=== PATIENT | female | born 1985 | race Caucasian/White ===

== ENCOUNTER 2016-04-15 10:46 | Emergency (ER) | payer OTHER ==
[2016-04-15 10:57] VITALS: BP 152/45
[2016-04-15] MEDS ORDERED: EPINEPHrine AMP 1 MG/ML SUBCUT ONE (11:18)
[2016-04-15] MEDS ORDERED: methylPREDNISolone 125 MG* 2 ML VIAL IM ONE (11:19)
[2016-04-15] MEDS ORDERED: diPHENhydraMINE IV* 50 MG/ML 1 ml VIAL (BENADRYL) IM ONE (11:19)
--- NOTE | 2016-04-15 12:54 | UC ---
Yahir King Matthew, scribed for Erickson Hollingsworth MD on 04/15/16 at 1119 . Allergic Reaction HPI - HPI Summary HPI Summary: Nurses Note; States has bleach allergy; exposed to bleach fumes at work. states throat/tongue feeling swollen, also getting itchy rash. A 30 y/o female presents to the ED with symptoms of an allergic reaction since 30 minutes ago. The patient states that she is allergic to bleach and walked by a taxi cab that had just been cleaned with bleach. She states that she only inhaled the bleach. Associated symptoms include rash on the abdomen, SOB upon arrival, swelling of the eyes and throat as well as diffuse itchiness. She also states that she feeling "weird". Hx of asthma. The patient has not been given epinephrine in the past. - History of Current Complaint Chief Complaint: UCAllergicReaction Stated Complaint: ALLERGIC REACTION Time Seen by Provider: 04/15/16 10:55 Hx Obtained From: Patient Hx Last Menstrual Period: 1 week ?: No Onset/Duration: Sudden Onset, Lasting Minutes, Still Present Severity Initially: Moderate Severity Currently: Moderate Location: Diffuse Character: Swelling, Pruritus Aggrevating Factor(s): Other - Bleach Alleviating Factor(s): Antihistamines, Epinephrine Associated Signs And Symptoms: Positive: Difficulty Breathing, Rash - lower abdomen, Throat Tightening. Negative: Abdominal Pain - Allergies/Home Medications Allergies/Adverse Reactions: Allergies Allergy/AdvReac Type Severity Reaction Status Date / Time Clindamycin Allergy Hives/Diff. Verified 03/06/16 10:26 Breathing/I tching Tramadol Allergy Hives Verified 03/06/16 10:26 arugula Allergy Unknown Uncoded 03/06/16 10:26 Reaction Details bleach Allergy Hives/Diff. Uncoded 04/15/16 11:00 Breathing/I tching PMH/Surg Hx/FS Hx/Imm Hx Endocrine History Of: Denies: Diabetes, Thyroid Disease Cardiovascular History Of: Denies: Cardiac Disorders, Hypertension, Pacemaker/ICD Respiratory History Of: Reports: Asthma Denies: COPD GI/ History Of: Reports: Gastroesophageal Reflux Denies: Renal Disease Neurological History Of: Denies: CVA, Dementia, Seizures Other History Of: Negative For: Anticoagulant Therapy - Surgical History Surgical History: Yes Surgery Procedure, Year, and Place: fracture mandible. broken left arm (CLOSED REDUCTION) - Family History Known Family History: Positive: Cardiac Disease, Diabetes Family History: FHx of asthma - Social History Occupation: Employed Full-time - [employer] Alcohol Use: Occasionally Substance Use Type: None Substance Use Comment - Amount & Last Used: one year Smoking Status (MU): Never Smoked Tobacco Have You Smoked in the Last Year: No Household Exposure Type: Cigarettes, Pipe - Immunization History Most Recent Influenza Vaccination: doesn't get Review of Systems Constitutional: Negative Skin: Rash - lower abdomen, Other - Diffuse itchiness Eyes: Other - Eye swelling ENT: Other - Throat Swelling Respiratory: Shortness Of Breath Cardiovascular: Negative Gastrointestinal: Negative Genitourinary: Negative Motor: Negative Neurovascular: Negative Musculoskeletal: Negative Neurological: Negative Psychological: Negative All Other Systems Reviewed And Are Negative: Yes Physical Exam Triage Information Reviewed: Yes Appearance: Well-Appearing, No Pain Distress, Well-Nourished Vital Signs: Initial Vital Signs Pulse 73 04/15/16 10:51 Resp 20 04/15/16 10:51 BP 152/45 04/15/16 10:51 Pulse Ox 100 04/15/16 10:51 Vital Signs Reviewed: Yes Eyes: Positive: Conjunctiva Clear ENT: Positive: Hearing grossly normal, Pharynx normal, TMs normal, Other: - Throat is open and clear. Tongue is normal size Neck: Positive: Supple, No Lymphadenopathy Respiratory: Positive: Chest non-tender, Lungs clear, Normal breath sounds, No respiratory distress Cardiovascular: Positive: RRR, No Murmur Abdomen Description: Positive: Nontender, Soft Bowel Sounds: Positive: Present Musculoskeletal: Positive: Strength Intact, Other: - FISCHER Neurological: Positive: Alert Psychological: Positive: Age Appropriate Behavior - Additional Comments Additional Physical Examination at 12:00 PE No facial swelling No burning of mucosal membranes Throat open and clear Lungs CTA No rash noted on the arms bilaterally No itchiness It appears as though the allergic component has resolved. Re-Evaluation - Re-Evaluation First Eval Re-Evaluation Time: 11:11 Change: Improved Comment: The patient's lungs are CTA. Second Eval Re-Evaluation Time: 12:00 Comment: The patient states that her throat feels relaxed as well as her face. Her eyes feel normal as well. Posterior of the forearms are no longer red bilaterally. She states that she has burning sensation under the skin of the hands and in the crevices of her elbows. She states that she feels ready to go home. Third Eval Re-Evaluation Time: 12:51 Change: Improved Comment: Came into the room and the patient was ambulating, breathing normally with no itchiness or SOB. Voice clear, throat open and clear. Lungs CTA, Heart RRR, and no abdominal pain, bowel sounds present, and no rashes noted. The patient states that she feels much better. Allergic Reaction Course/Dx - Course Course Of Treatment: A 30 y/o female exposed to bleach with a previous Hx of an allergic reaction including a visit on 07/10/15. 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 She initially complained of SOB, rash in the lower abdomen anteriorly and it itchiness. Althought she has asthma she had no wheezing. She responded to epinephrine and Benadryl and was given solumedrol as prophylaxis against a delayed allergic reaction. Poisson control noted this maybe a direct mucosal response to inhaling bleach. - Differential Dx/Diagnosis Differential Diagnosis/HQI/PQRI: Other - Inhalation injury; hypersensitive skin reaction; anaphylaxis; allergic reaction. Provider Diagnoses: Allergic reaction; Discharge - Discharge Plan Condition: Stable Disposition: HOME Patient Education Materials: Anaphylaxis (ED) Forms: *Gen. Provider Communication Referrals: Trevin Mock MD [Primary Care Provider] - Additional Instructions: WE DISCUSSED: 1. Take 25mg of Benadryl this afternoon, later, and this evening before bed. 2. GO TO ED FOR ANY SHORTNESS OF BREATH, DIFFICULTY SWALLOWING OR NEW RASH OR ITCHING. 3. CONSIDER carrying an Epi-Pen. The documentation as recorded by the Yahir leonardo Matthew accurately reflects the service I personally performed and the decisions made by me, Erickson Hollingsworth MD.
== END 2016-04-15 13:00 | disposition home or self-care (01) ==
LOC: UCEAST 10:46
DX: T78.40XA Allergy, unspecified, initial encounter (principal); X58.XXXA Exposure to other specified factors, initial encounter; R21 Rash and other nonspecific skin eruption; R06.00 Dyspnea, unspecified; Z88.1 Allergy status to other antibiotic agents; Z77.22 Contact with and (suspected) exposure to environmental tobacco smoke (acute) (chronic)
CPT/HCPCS: 96372; 99212; G0463; J0171; J1200; J2930

== ENCOUNTER 2016-08-07 00:29 | Emergency (ER) | payer OTHER ==
--- NOTE | 2016-08-07 01:06 | ED ---
Throat Pain/Nasal Congestion - HPI Summary HPI Summary: 30 female presents with complaints of dental pain and nodule that began 2 weeks ago but has worsened over the past day and especially today. Patient states the pain has began to radiate into her right cheek and ear. She denies any fever/ chills or discharge. No difficulty swallowing or breathing. She states the pain is about a 6/10. She has had several procedures and dental work done from breaking her jaw and dental caries. Patient denies taking any medication for the pain. She is concerned for cancer, as it runs in her family. Denies tobacco use. - History of Current Complaint Chief Complaint: EDDentalPain Time Seen by Provider: 08/07/16 01:06 Hx Obtained From: Patient Onset/Duration: Sudden Onset, Lasting Weeks, Worse Since - yesterday Severity: Moderate Cough: None - Allergies/Home Medications Allergies/Adverse Reactions: Allergies Allergy/AdvReac Type Severity Reaction Status Date / Time Clindamycin Allergy Hives/Diff. Verified 08/07/16 01:07 Breathing/I tching Tramadol Allergy Hives Verified 08/07/16 01:07 arugula Allergy Unknown Uncoded 08/07/16 01:07 Reaction Details bleach Allergy Hives/Diff. Uncoded 08/07/16 01:07 Breathing/I tching PMH/Surg Hx/FS Hx/Imm Hx Endocrine/Hematology History: Denies: Hx Anticoagulant Therapy, Hx Diabetes, Hx Thyroid Disease Cardiovascular History: Denies: Hx Hypertension, Hx Pacemaker/ICD Respiratory History: Reports: Hx Asthma Denies: Hx Chronic Obstructive Pulmonary Disease (COPD) GI History: Reports: Hx Gastroesophageal Reflux Disease History: Denies: Hx Renal Disease Neurological History: Denies: Hx Dementia, Hx Seizures Psychiatric History: Denies: Hx Substance Abuse - Surgical History Surgery Procedure, Year, and Place: fracture mandible. broken left arm (CLOSED REDUCTION) - Immunization History Date of Tetanus Vaccine: unknown Immunizations Up to Date: Yes Infectious Disease History: Denies: Hx Clostridium Difficile, Hx Hepatitis, Hx Human Immunodeficiency Virus (HIV), Hx of Known/Suspected MRSA, Hx Shingles, Hx Tuberculosis, Hx Known/ Suspected VRE, Hx Known/Suspected VRSA, History Other Infectious Disease, Traveled Outside the [place] in Last 30 Days - Family History Known Family History: Positive: None, Unknown, Cardiac Disease, Diabetes Family History: FHx of asthma - Social History Alcohol Use: Occasionally Substance Use Type: Reports: None Substance Use Comment - Amount & Last Used: one year Smoking Status (MU): Never Smoked Tobacco Have You Smoked in the Last Year: No Review of Systems Constitutional: Negative Eyes: Negative Positive: Dental Pain Cardiovascular: Negative Gastrointestinal: Negative Musculoskeletal: Negative Skin: Negative Neurological: Negative Positive: Anxious All Other Systems Reviewed And Are Negative: Yes Physical Exam Triage Information Reviewed: Yes Vital Signs On Initial Exam: Initial Vitals Temp Pulse Resp BP Pulse Ox 97.5 F 79 18 138/45 100 08/07/16 00:43 08/07/16 00:43 08/07/16 00:43 08/07/16 00:43 08/07/16 00:43 afebrile Vital Signs Reviewed: Yes Appearance: Positive: Well-Appearing, No Pain Distress, Well-Nourished Skin: Positive: Warm, Skin Color Reflects Adequate Perfusion, Dry. Negative: Cold Injury Head/Face: Positive: Normal Head/Face Inspection Eyes: Positive: Normal, EOMI, MITCHELL, Conjunctiva Clear ENT: Positive: Normal ENT inspection, Hearing grossly normal, Pharynx normal, TMs normal, Dental tenderness - right over tooth #6. Negative: Pharyngeal erythema, Nasal congestion, Nasal drainage, TM bulging, TM dull, TM red, Tonsillar swelling, Tonsillar exudate, Trismus, Muffled/hoarse voice Dental: Positive: Percussion Tenderness @ - right maxillary sinus, Gross Decay/ Caries @, Dental Fracture @, Abscess @ - palpated over tooth number 6 over top lip, no protrusion or external visualization. tender on palpation, no discharge , warmth, cellulitis. visualized small edematous area of right 6th tooth. poor dentita. nonfluctuant and not drainable.. Negative: Cellulitis @, Cervical Lymphadenopathy, Bleeding, Oropharynx Neck: Positive: Supple, Nontender, No Lymphadenopathy Respiratory/Lung Sounds: Positive: Clear to Auscultation, Breath Sounds Present. Negative: Rales, Rhonchi, Wheezes Cardiovascular: Positive: Normal, RRR, Pulses are Symmetrical in both Upper and Lower Extremities Musculoskeletal: Positive: Normal, Strength/ROM Intact Neurological: Positive: Normal, Sensory/Motor Intact, Alert, Oriented to Person Place, Time Diagnostics - Vital Signs Vital Signs Temp Pulse Resp BP Pulse Ox 08/07/16 00:43 97.5 F 79 18 138/45 100 - Laboratory Lab Statement: Any lab studies that have been ordered have been reviewed, and results considered in the medical decision making process. EENT Course/Dx - Course Course Of Treatment: given naproxen for pain and inflammation. first dose of amoxicillin given in ED. continue both at home. follow up with dentist. patient had appointment in 1.5 weeks with dentist. Aware of worsening signs and symptoms to watch out for. Return if worsen. Also recommend to swish with salt water and oralgel. - Differential Diagnoses Differential Diagnoses: Dental Abscess, Dental Caries, Fractured Tooth, Periodontic Abscess, Other - apthous ulcer - Diagnoses Provider Diagnoses: Pain, dental, Dental abscess Discharge - Discharge Plan Condition: Stable Disposition: HOME Prescriptions: Amoxicillin CAP* [Amoxicillin 500 MG CAP*] 500 mg PO Q12H #13 cap Patient Education Materials: Dental Abscess (ED) Referrals: Trevin Mock MD [Primary Care Provider] - Additional Instructions: Take prescribed antibiotic as directed. Recommend taking probiotics inbetween doses to help replenish normal ana. Also recommend doubling up on control until next cycle due to antibiotics decreasing effectiveness of control, or refrain from sexual activity. Take Advil or Aleve to help with pain and inflammation. Apply warm compresses to area of abscess/pain. Swish/gargle with salt water multiple times daily. If symptoms worsen or do not improve please return. Follow up with dentist, at your appointment in the next couple of weeks.
[2016-08-07 01:09] VITALS: BP 111/73
[2016-08-07] MEDS ORDERED: Amoxicillin CAP* 500 MG PO ONE (01:21)
[2016-08-07] MEDS ORDERED: Naproxen TAB* 250 MG PO ONE (01:22)
== END 2016-08-07 02:03 | disposition home or self-care (01) ==
LOC: ED 00:29
DX: K04.7 Periapical abscess without sinus (principal); K08.89 Other specified disorders of teeth and supporting structures; K21.9 Gastro-esophageal reflux disease without esophagitis
CPT/HCPCS: 99282; A9270-GY

== ENCOUNTER 2017-01-08 02:18 | Emergency (ER) | payer SELFPAY ==
[2017-01-08] MEDS ORDERED: Ibuprofen TAB* 600 MG PO ONE (04:01)
[2017-01-08 07:14] VITALS: BP 92/61
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
== END 2017-01-08 03:09 | disposition home or self-care (01) ==
LOC: ED 03:09
DX: S13.9XXA Sprain of joints and ligaments of unspecified parts of neck, initial encounter (principal); R51 Headache; M54.9 Dorsalgia, unspecified; V43.52XA Car driver injured in collision with other type car in traffic accident, initial encounter; Y93.9 Activity, unspecified; Y92.9 Unspecified place or not applicable
CPT/HCPCS: 70450; 72125; 99282; A9270-GY

== ENCOUNTER 2017-01-12 17:37 | Emergency (ER) | payer SELFPAY ==
[2017-01-12 17:52] VITALS: BP 113/55
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
[2017-01-12] MEDS ORDERED: Ketorolac INJ* 60 MG/2 ML VIAL IM ONE (19:07)
== END 2017-01-12 19:30 | disposition home or self-care (01) ==
LOC: UCEAST 17:37
DX: M54.12 Radiculopathy, cervical region (principal); G56.00 Carpal tunnel syndrome, unspecified upper limb; M25.511 Pain in right shoulder; M62.838 Other muscle spasm
CPT/HCPCS: 99213; G0463; J1885

== ENCOUNTER 2017-01-25 13:34 | Emergency (ER) | payer OTHER ==
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
[2017-01-25 19:46] VITALS: BP 145/89
== END 2017-01-25 19:44 | disposition home or self-care (01) ==
LOC: ED 13:34
DX: M95.8 Other specified acquired deformities of musculoskeletal system (principal); M79.601 Pain in right arm
CPT/HCPCS: 99282

== ENCOUNTER 2017-02-21 09:32 | Emergency (ER) | payer OTHER ==
[2017-02-21 09:47] VITALS: BP 139/54
--- NOTE | 2017-02-21 11:16 | UC ---
Throat Pain/Nasal Gucci HPI - HPI Summary HPI Summary: Cough sore throat green and ugal[place] productive cough, chest burning with cough - History of Current Complaint Chief Complaint: UCGeneralIllness Stated Complaint: SORE THROAT Time Seen by Provider: 02/21/17 11:08 Hx Obtained From: Patient Hx Last Menstrual Period: 02/15/17 ?: No Onset/Duration: Sudden Onset, Lasting Days, Still Present Severity: Moderate Pain Intensity: 5 Pain Scale Used: 0-10 Numeric Cough: Productive Associated Signs & Symptoms: Positive: Nasal Discharge - Allergies/Home Medications Allergies/Adverse Reactions: Allergies Allergy/AdvReac Type Severity Reaction Status Date / Time Clindamycin Allergy Hives/Diff. Verified 02/21/17 09:47 Breathing/I tching Tramadol Allergy Hives Verified 02/21/17 09:47 arugula Allergy Unknown Uncoded 02/21/17 09:47 Reaction Details bleach Allergy Hives/Diff. Uncoded 02/21/17 09:47 Breathing/I tching Home Medications: Home Medications Phenol 1.4% Benton* [Chloroseptic Throat Benton*] 1 spray TOPICAL Q3HR PRN [History Confirmed 02/21/17] PMH/Surg Hx/FS Hx/Imm Hx Previously Healthy: No GI/ History: Gastroesophageal Reflux Other History Of: Negative For: Anticoagulant Therapy - Surgical History Surgical History: Yes Surgery Procedure, Year, and Place: fracture mandible. broken left arm (CLOSED REDUCTION) - Family History Known Family History: Positive: None, Unknown, Cardiac Disease, Diabetes Family History: FHx of asthma - Social History Occupation: Employed Full-time Lives: With Family Alcohol Use: Rare Substance Use Type: None Substance Use Comment - Amount & Last Used: one year Smoking Status (MU): Never Smoked Tobacco Have You Smoked in the Last Year: No Household Exposure Type: Cigarettes, Pipe - Immunization History Most Recent Influenza Vaccination: NOT UTD Review of Systems Constitutional: Negative Skin: Negative Eyes: Negative ENT: Negative, Sore Throat, Nasal Discharge Respiratory: Cough Cardiovascular: Negative Gastrointestinal: Negative Genitourinary: Negative Motor: Negative Neurovascular: Negative Musculoskeletal: Negative Neurological: Negative Psychological: Negative Is Patient Immunocompromised?: No All Other Systems Reviewed And Are Negative: Yes Physical Exam Triage Information Reviewed: Yes Appearance: Well-Appearing, No Pain Distress, Well-Nourished Vital Signs: Initial Vital Signs Temp 97.8 F 02/21/17 09:42 Pulse 77 02/21/17 09:42 Resp 18 02/21/17 09:42 BP 139/54 02/21/17 09:42 Pulse Ox 100 02/21/17 09:42 Vital Signs Reviewed: Yes Eye Exam: Normal Eyes: Positive: Conjunctiva Clear ENT Exam: Normal ENT: Positive: Normal ENT inspection, Hearing grossly normal, Pharynx normal, Nasal congestion, TMs normal, Uvula midline. Negative: Tonsillar swelling, Tonsillar exudate, Hoarse voice, Dental tenderness, Sinus tenderness Dental Exam: Normal Neck exam: Normal Neck: Positive: Supple, Nontender, No Lymphadenopathy Respiratory Exam: Normal Respiratory: Positive: Chest non-tender, Lungs clear, Normal breath sounds, No respiratory distress, No accessory muscle use Cardiovascular Exam: Normal Cardiovascular: Positive: RRR, No Murmur, Pulses Normal, Brisk Capillary Refill Musculoskeletal Exam: Normal Musculoskeletal: Positive: Strength Intact, ROM Intact, No Edema Neurological Exam: Normal Neurological: Positive: Alert, Muscle Tone Normal Psychological Exam: Normal Skin Exam: Normal Diagnostics - Laboratory Diagnostic Studies Completed/Ordered: rst (-) Throat Pain/Nasal Course/Dx - Course Assessment/Plan: Zithroamx, albuterol, rest increase fluids follow with pcp prn - Differential Dx/Diagnosis Provider Diagnoses: Acute Bronchitis Discharge - Discharge Plan Condition: Stable Disposition: HOME Prescriptions: Albuterol HFA INHALER* [Ventolin HFA Inhaler*] 1 - 2 puff INH Q4H PRN #1 mdi PRN Reason: cough/chest congestion Azithromycin TAB* [Zithromax TAB (Z-ROMAN) 250 mg #6 tabs] 2 tab PO .TODAY, THEN 1 DAILY #1 roman Patient Education Materials: Acute Bronchitis (ED) Referrals: Jeanine LEVINE,Maria M Peguero [Primary Care Provider] - If Needed
== END 2017-02-21 11:34 | disposition home or self-care (01) ==
LOC: UCEAST 09:32
DX: J20.9 Acute bronchitis, unspecified (principal); Z88.1 Allergy status to other antibiotic agents; Z88.5 Allergy status to narcotic agent
CPT/HCPCS: 87651; 99212; G0463

== ENCOUNTER 2017-04-02 10:44 | Emergency (ER) | payer SELFPAY ==
[2017-04-02] MEDS ORDERED: Ibuprofen TAB* 800 MG PO ONE (12:13)
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
[2017-04-02 15:21] VITALS: BP 104/50
== END 2017-04-02 15:20 | disposition home or self-care (01) ==
LOC: ED 10:44
DX: S16.1XXA Strain of muscle, fascia and tendon at neck level, initial encounter (principal); S56.912A Strain of unspecified muscles, fascia and tendons at forearm level, left arm, initial encounter; S46.911A Strain of unspecified muscle, fascia and tendon at shoulder and upper arm level, right arm, initial encounter; V43.52XA Car driver injured in collision with other type car in traffic accident, initial encounter; Y92.410 Unspecified street and highway as the place of occurrence of the external cause; Z88.3 Allergy status to other anti-infective agents; Z88.5 Allergy status to narcotic agent
CPT/HCPCS: 72020; 72040; 99283; A9270-GY

== ENCOUNTER 2017-04-04 17:58 | Emergency (ER) | payer SELFPAY ==
[2017-04-04 18:52] VITALS: BP 130/53
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
--- NOTE | 2017-04-04 20:29 | RAD ---
Indication: Cough. 2 views of the chest including dual energy PA views demonstrates no mediastinal shift. Heart is of normal size and configuration. Lung nur are clear. When compared to previous exam of March 04, 2009 no significant change is noted. IMPRESSION: No active cardiopulmonary disease is noted.
== END 2017-04-04 20:08 | disposition home or self-care (01) ==
LOC: UCEAST 17:58
DX: J45.909 Unspecified asthma, uncomplicated (principal); M54.9 Dorsalgia, unspecified; M79.1 Myalgia; V89.2XXA Person injured in unspecified motor-vehicle accident, traffic, initial encounter; W22.11XA Striking against or struck by driver side automobile airbag, initial encounter; Y93.89 Activity, other specified; Y92.9 Unspecified place or not applicable
CPT/HCPCS: 71046; 99212; G0463

== ENCOUNTER 2017-04-17 18:09 | Emergency (ER) | payer MEDICAID ==
[2017-04-17 18:21] VITALS: BP 113/58
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
== END 2017-04-17 18:56 | disposition home or self-care (01) ==
LOC: UCEAST 18:09
DX: R10.31 Right lower quadrant pain (principal); G50.1 Atypical facial pain; R22.0 Localized swelling, mass and lump, head; H92.01 Otalgia, right ear; J45.909 Unspecified asthma, uncomplicated; K21.9 Gastro-esophageal reflux disease without esophagitis; Z88.1 Allergy status to other antibiotic agents; Z88.5 Allergy status to narcotic agent; Z77.22 Contact with and (suspected) exposure to environmental tobacco smoke (acute) (chronic)
CPT/HCPCS: 99201; G0463

== ENCOUNTER 2017-04-17 20:42 | Emergency (ER) | payer SELFPAY ==
[2017-04-17] MEDS ORDERED: Ketorolac INJ* 30 MG/ML 1 ML VIAL IV ONE (23:23)
[2017-04-17] MEDS ORDERED: Pantoprazole IV* 40 MG IV ONE (23:23)
[2017-04-17] MEDS ORDERED: Metoclopramide IV* 5 MG/ML 2 ML VIAL IV ONE (23:23)
[2017-04-17] MEDS ORDERED: NS 0.9% 1000 ML* 1,000 ML IV ONE (23:23)
[2017-04-17 23:47] LABS: ABS Basophils 0 10^3/ul (0-0.2); ABS Eosinophils 0.1 10^3/ul (0-0.6); ABS Lymphocytes 2.6 10^3/ul (1.0-4.8); ABS Monocytes 0.4 10^3/ul (0-0.8); ABS Nucleated RBC 0 10^3/ul; Hematocrit 41 % (35-47); Hemoglobin 13.6 g/dl (12.0-16.0); Lymphocyte % 36.5 % (25-47); Mean Corpuscular HGB Conc 34 g/dl (31-36); Mean Corpuscular Hemoglobin 29 pg (27-31); Mean Corpuscular Volume 87 fL (80-97); Mean Platelet Volume 9 um3 (7.4-10.4); Nucleated Red Blood Cells % 0.1; Platelet Count 196 10^3/ul (150-450); Red Blood Count 4.67 10^6/ul (4.0-5.4); Red Cell Distribution Width 13 % (10.5-15); White Blood Count 7.2 10^3/ul (3.5-10.8)
[2017-04-18 00:01] LABS: EGFR Non-African American 82.4 (>60)
[2017-04-18] MEDS ORDERED: Iohexol 300* (CONTRAST) 10 ML SDV IV ONE (00:04)
[2017-04-18 01:07] LABS: Urine Appearance Cloudy; Urine Blood 2+ (Negative); Urine Color Yellow; Urine Ketones 1+ (Negative); Urine Protein Negative (Negative); Urine Specific Gravity 1.029 (1.010-1.030); Urine Urobilinogen Negative (Negative)
[2017-04-18] MEDS ORDERED: Sulfamethox/Trimethoprim DS 800/160* TAB PO ONE (01:10)
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
[2017-04-18 01:46] VITALS: BP 108/31
--- NOTE | 2017-04-18 08:01 | RAD ---
INDICATION: Abdominal pain COMPARISON: None TECHNIQUE: Axial source images were obtained from the hemidiaphragms to the symphysis pubis following administration of IV contrast only. 100 mL Omnipaque 300 was utilized. Coronal and sagittal reconstructed images were acquired. Lung bases: The lung bases are clear. Liver: The liver is normal in size. There are no masses. There is no ductal dilatation. Gallbladder: There are no calcified gallstones. There is no evidence of wall thickening or pericholecystic fluid. Spleen: The spleen is normal in size. There are no masses. Pancreas: There is no focal pancreatic mass or ductal dilatation. Adrenal glands: There is no evidence of adrenal mass. Kidneys: The kidneys are normal in size and position. There are prompt nephrograms and there is prompt excretion bilaterally. There are no renal parenchymal masses. There is no evidence of nephrolithiasis. Adenopathy: There is no evidence of adenopathy by size criteria. Fluid collections: There are no free or localized fluid collections. Vessels:There are no significant atherosclerotic changes involving the aorta. There is no focal aneurysm. The iliac vessels are normal in caliber. The IVC appears normal. GI tract: Limited evaluation due to lack of oral contrast. Appendix not well visualized. No perienteric inflammatory changes are identified. Pelvic organs: Uterus and adnexa are normal. There is small in bleeding right ovarian cyst. Bladder: There are no bladder masses. Abdominal and pelvic soft tissues: The extraperitoneal abdominal and pelvic soft tissues appear normal.. Osseous structures: There are no acute osseous findings. Other: None IMPRESSION: SUSPECT SMALL INCLUDING RIGHT OVARIAN CYST, OTHERWISE NEGATIVE.
== END 2017-04-18 01:49 | disposition home or self-care (01) ==
LOC: ED 20:42
DX: N39.0 Urinary tract infection, site not specified (principal); N83.201 Unspecified ovarian cyst, right side; R10.9 Unspecified abdominal pain; Z87.09 Personal history of other diseases of the respiratory system
CPT/HCPCS: 36415; 74177; 80053; 81003; 81015; 82150; 83690; 83735; 84702; 85025; 86140; 87086; 96374; 96375; 99285; J1885; J2765; Q9967

== ENCOUNTER 2018-01-12 19:55 | Emergency (ER) | payer MEDICAID, OTHER ==
[2018-01-12 20:11] VITALS: BP 146/50
[2018-01-12] MEDS ORDERED: Ketorolac INJ* 30 MG/ML 1 ML VIAL IM ONE (20:51)
[2018-01-12] MEDS ORDERED: Mupirocin 2% OINT* TUBE TOPICAL ONE (20:52)
--- NOTE | 2018-01-12 20:56 | UC ---
Skin Complaint HPI - HPI Summary HPI Summary: The patient is a 32-year-old female that presents here for evaluation of chemical gaitan to her face and chest. She states that she tried to remove intact tattoos from her face and chest. She had the tattoos for her Halloween costume. She initially attempted to remove the ankle with scrubbing with hot water and soap. This did not do the trick. She then attempted scrubbing with rubbing alcohol. Shortly remove the tattoos but then just cause some smearing. She then attempted to remove the ink tattoos with Mr. pedrito jha. She scrubbed the tattoo on her chest and dad at the tattoos on her face. She immediately started experiencing burning pain. She is use cool compresses since then with some help. She has had some wheezing but has not been able to use her inhaler because she was at work. - History of Current Complaint Chief Complaint: UCSkin Time Seen by Provider: 01/12/18 20:39 Stated Complaint: CHEMICAL BURN Hx Obtained From: Patient Hx Last Menstrual Period: 01/10/18 Onset/Duration: Sudden Onset, Lasting Hours Timing: Constant Onset Severity: Mild Current Severity: Moderate Pain Intensity: 6 Pain Scale Used: 0-10 Numeric Location: Face, Other - ant chest Aggravating Factor(s): Touch Alleviating Factor(s): Nothing Associated Signs & Symptoms: Positive: Cough, Wheezing, Tenderness. Negative: Nausea, Vomiting, Numbness, Thirst, Diaphoresis, Weakness, Pallor, Shivering, Fever, Chills, Chest Pain, Hoarseness, Throat Tightening, Syncope, Drainage, Bruising, Red Streaks, Joint Swelling - Allergy/Home Medications Allergies/Adverse Reactions: Allergies Allergy/AdvReac Type Severity Reaction Status Date / Time clindamycin Allergy Hives/Diff. Verified 01/12/18 20:12 Breathing/I tching tramadol Allergy Hives/Diff. Verified 01/12/18 20:12 Breathing/I tching arugula Allergy Unknown Uncoded 01/12/18 20:12 Reaction Details bleach Allergy Hives/Diff. Uncoded 01/12/18 20:12 Breathing/I tching Review of Systems Constitutional: Negative Skin: Negative Eyes: Negative ENT: Negative Respiratory: Shortness Of Breath, Cough Cardiovascular: Negative Gastrointestinal: Negative Genitourinary: Negative Motor: Negative Neurovascular: Negative Musculoskeletal: Negative Neurological: Negative Psychological: Negative All Other Systems Reviewed And Are Negative: Yes PMH/Surg Hx/FS Hx/Imm Hx Previously Healthy: Yes Respiratory History: Asthma Other History Of: Negative For: Anticoagulant Therapy - Surgical History Surgical History: Yes Surgery Procedure, Year, and Place: fracture mandible. broken left arm (CLOSED REDUCTION) - Family History Known Family History: Positive: Cardiac Disease, Diabetes, Other - cancer Family History: FHx of asthma - Social History Alcohol Use: Rare Substance Use Type: None Substance Use Comment - Amount & Last Used: one year Smoking Status (MU): Never Smoked Tobacco Have You Smoked in the Last Year: No Household Exposure Type: Cigarettes, Pipe - Immunization History Most Recent Influenza Vaccination: NOT UTD Physical Exam Triage Information Reviewed: Yes Appearance: Well-Appearing, No Pain Distress, Well-Nourished Vital Signs: Initial Vital Signs Temp 98.7 F 01/12/18 20:07 Pulse 88 01/12/18 20:07 Resp 18 01/12/18 20:07 BP 146/50 01/12/18 20:07 Pulse Ox 100 01/12/18 20:07 Vital Signs Reviewed: Yes Eyes: Positive: Conjunctiva Clear ENT: Positive: Hearing grossly normal, Uvula midline. Negative: Pharyngeal erythema, Nasal drainage, Tonsillar swelling, Tonsillar exudate, Trismus, Muffled voice, Hoarse voice, Dental tenderness, Sinus tenderness Neck: Positive: Supple, Nontender, No Lymphadenopathy Respiratory: Positive: Wheezing - mild Cardiovascular: Positive: RRR, No Murmur Abdominal Exam: Normal Musculoskeletal: Positive: ROM Intact, No Edema Neurological: Positive: Alert Psychological Exam: Normal Skin Exam: Other - see image Course/Dx - Diagnoses Provider Diagnoses: chemical gaitan Discharge - Sign-Out/Discharge Documenting (check all that apply): Patient Departure All imaging exams completed and their final reports reviewed: No Studies - Discharge Plan Condition: Stable Disposition: HOME Patient Education Materials: Chemical Skin Burn (ED) Referrals: Maria M Torres [Primary Care Provider] - 5 Days Additional Instructions: I suggest you get some AQUAPHOR HEALING OIMTMENT to use on your face Use bactroban on your chest as directed - Billing Disposition and Condition Condition: STABLE Disposition: Home Images Head: 1 - erthymena/slightly raised/no blisters Front/Back of Body, Lg ([place]): 1 - erthyema and raw appearance
== END 2018-01-12 21:27 | disposition home or self-care (01) ==
LOC: UCEAST 19:55
DX: T65.891A Toxic effect of other specified substances, accidental (unintentional), initial encounter (principal); T20.50XA Corrosion of first degree of head, face, and neck, unspecified site, initial encounter; T21.41XA Corrosion of unspecified degree of chest wall, initial encounter; Y93.E8 Activity, other personal hygiene; Y92.9 Unspecified place or not applicable; Z88.1 Allergy status to other antibiotic agents; Z88.5 Allergy status to narcotic agent
CPT/HCPCS: 96372; 99212; G0463; J1885

== ENCOUNTER 2018-01-21 20:37 | Emergency (ER) | payer OTHER ==
[2018-01-21 20:58] VITALS: BP 118/53
--- NOTE | 2018-01-21 21:06 | UC ---
Neck Pain HPI - HPI Summary HPI Summary: 32-year-old woman comes in with a chief complaint of right-sided neck pain. Started about a week ago. It's been getting worse. It hurts to move her neck or palpates the area. She feels it up into her jaw and into her right ear. Does have poor dentition but she does not feel is due to a dental infection. It does hurt to swallow she does not feel short of breath. No fevers. - History of Current Complaint Chief Complaint: UCGeneralIllness Stated Complaint: SORE THROAT Time Seen by Provider: 01/21/18 20:45 Hx Last Menstrual Period: 01/10/2018 Pain Intensity: 9 - Allergies/Home Medications Allergies/Adverse Reactions: Allergies Allergy/AdvReac Type Severity Reaction Status Date / Time clindamycin Allergy Hives/Diff. Verified 01/21/18 20:59 Breathing/I tching tramadol Allergy Hives/Diff. Verified 01/21/18 20:59 Breathing/I tching arugula Allergy Unknown Uncoded 01/21/18 20:59 Reaction Details bleach Allergy Hives/Diff. Uncoded 01/21/18 20:59 Breathing/I tching PMH/Surg Hx/FS Hx/Imm Hx Respiratory History: Asthma Other History Of: Negative For: Anticoagulant Therapy - Surgical History Surgical History: Yes Surgery Procedure, Year, and Place: fracture mandible. broken left arm (CLOSED REDUCTION) - Family History Known Family History: Positive: None, Unknown, Cardiac Disease, Diabetes, Other - cancer Family History: FHx of asthma - Social History Alcohol Use: Rare Substance Use Type: None Substance Use Comment - Amount & Last Used: one year Smoking Status (MU): Never Smoked Tobacco Have You Smoked in the Last Year: No Household Exposure Type: Cigarettes, Pipe - Immunization History Most Recent Influenza Vaccination: NOT UTD Review Of Systems Constitutional: Positive: Negative Skin: Positive: Negative Eyes: Positive: Negative ENT: Positive: Sore Throat, Ear Ache. Negative: Nasal Discharge, Sinus Congestion Respiratory: Positive: Negative Cardiovascular: Positive: Negative Gastrointestinal: Positive: Negative Genitourinary: Positive: Negative Musculoskeletal: Positive: Negative Neurological: Positive: Negative Psychological: Positive: Negative All Other Systems Reviewed And Are Negative: No Physical Exam Triage Information Reviewed: Yes Appearance: Well-Appearing, Well-Nourished, Pain Distress - MILD Vital Signs: Initial Vital Signs Temp 98.2 F 01/21/18 20:52 Pulse 62 01/21/18 20:52 Resp 16 01/21/18 20:52 BP 118/53 01/21/18 20:52 Pulse Ox 97 01/21/18 20:52 Vital Signs Reviewed: Yes Eye Exam: Normal Eyes: Positive: Conjunctiva Clear ENT: Positive: Pharynx normal, Other - Patient is tender to palpation right anterior neck. I can feel the pulse of the carotid artery.. Negative: Muffled voice, Hoarse voice Dental: Positive: Other: - POSITIVE CARIES Neck: Positive: Tenderness @ - Right anterior, Other: - Decreased range of motion secondary to pain in the neck Respiratory: Positive: Lungs clear, Normal breath sounds, No respiratory distress Cardiovascular: Positive: RRR Musculoskeletal Exam: Normal Musculoskeletal: Positive: Strength Intact, ROM Intact Neurological Exam: Normal Neurological: Positive: Alert, Muscle Tone Normal Psychological Exam: Normal Psychological: Positive: Age Appropriate Behavior Skin Exam: Normal Neck Pain Course/Dx - Course Course Of Treatment: I recommended the patient to go the emergency department for further evaluation of her neck pain and swelling. - Differential Dx/Diagnosis Provider Diagnoses: NECK PAIN Discharge - Sign-Out/Discharge Documenting (check all that apply): Patient Departure All imaging exams completed and their final reports reviewed: No Studies - Discharge Plan Condition: Stable Disposition: HOME-RECOMMEND TO ED Patient Education Materials: Neck Pain (ED) Referrals: Maria M Torres [Primary Care Provider] - Additional Instructions: GO DIRECTLY TO THE EMERGENCY DEPARTMENT FOR FURTHER EVALUATION. - Billing Disposition and Condition Condition: STABLE Disposition: Home-Recommend to ED
== END 2018-01-21 21:17 | disposition home health service (06) ==
LOC: UCEAST 20:37
DX: M54.2 Cervicalgia (principal); J02.9 Acute pharyngitis, unspecified; J45.909 Unspecified asthma, uncomplicated; Z88.1 Allergy status to other antibiotic agents; Z88.6 Allergy status to analgesic agent; Z91.018 Allergy to other foods; Z91.048 Other nonmedicinal substance allergy status
CPT/HCPCS: 99212; G0463

== ENCOUNTER 2018-01-21 22:19 | Emergency (ER) | payer OTHER ==
[2018-01-21] MEDS ORDERED: Ibuprofen TAB* 800 MG PO ONE (23:12)
[2018-01-21 23:42] LABS: ABS Basophils 0.1 10^3/ul (0-0.2); ABS Eosinophils 0.1 10^3/ul (0-0.6); ABS Lymphocytes 2.4 10^3/ul (1.0-4.8); ABS Monocytes 0.5 10^3/ul (0-0.8); ABS Nucleated RBC 0 10^3/ul; Eosinophil % 1.2 % (0-6); Hematocrit 39 % (35-47); Hemoglobin 13.4 g/dl (12.0-16.0); Lymphocyte % 26.7 % (25-47); Mean Corpuscular HGB Conc 34 g/dl (31-36); Mean Corpuscular Hemoglobin 30 pg (27-31); Mean Corpuscular Volume 87 fL (80-97); Mean Platelet Volume 9.1 fL (7.4-10.4); Nucleated Red Blood Cells % 0; Platelet Count 206 10^3/ul (150-450); Red Blood Count 4.51 10^6/ul (4.00-5.40); Red Cell Distribution Width 13 % (10.5-15); White Blood Count 9.2 10^3/ul (3.5-10.8)
[2018-01-22 00:01] LABS: EGFR Non-African American 80.7 (>60)
[2018-01-22] MEDS ORDERED: Iohexol 300* (CONTRAST) 10 ML SDV IV ONE (00:35)
--- NOTE | 2018-01-22 02:41 | ED ---
Throat Pain/Nasal Congestion - HPI Summary HPI Summary: Patient sent by [facility] to ED for further evaluation of right submandibular pain and swelling involving right ear right side throat. Patient denies history of the toe abscess, fever, cough, sore throat, CP, SOB, N/V/D, abdominal pain, change in urine, change in BM. Medical history is none. Patient took naproxen yesterday. - History of Current Complaint Chief Complaint: EDGeneral Time Seen by Provider: 01/21/18 23:02 Hx Obtained From: Patient Onset/Duration: Gradual Onset Severity: Severe Associated Signs And Symptoms: Positive: Dysphagia. Negative: Drooling, Wheezing, Hoarseness Cough: None - Allergies/Home Medications Allergies/Adverse Reactions: Allergies Allergy/AdvReac Type Severity Reaction Status Date / Time clindamycin Allergy Hives/Diff. Verified 01/21/18 22:27 Breathing/I tching tramadol Allergy Hives/Diff. Verified 01/21/18 22:27 Breathing/I tching arugula Allergy Unknown Uncoded 01/21/18 22:27 Reaction Details bleach Allergy Hives/Diff. Uncoded 01/21/18 22:27 Breathing/I tching PMH/Surg Hx/FS Hx/Imm Hx Endocrine/Hematology History: Denies: Hx Anticoagulant Therapy, Hx Diabetes, Hx Thyroid Disease Cardiovascular History: Denies: Hx Hypertension, Hx Pacemaker/ICD Respiratory History: Reports: Hx Asthma Denies: Hx Chronic Obstructive Pulmonary Disease (COPD) GI History: Reports: Hx Gastroesophageal Reflux Disease Denies: Hx Ulcer History: Denies: Hx Renal Disease Musculoskeletal History: Denies: Hx Arthritis Sensory History: Denies: Hx Hearing Aid Neurological History: Denies: Hx Dementia, Hx Seizures Psychiatric History: Denies: Hx Panic Disorder, Hx Substance Abuse - Surgical History Surgery Procedure, Year, and Place: fracture mandible. broken left arm (CLOSED REDUCTION) - Immunization History Date of Tetanus Vaccine: utd Date of Influenza Vaccine: none Infectious Disease History: No Infectious Disease History: Denies: Hx Clostridium Difficile, Hx Hepatitis, Hx Human Immunodeficiency Virus (HIV), Hx of Known/Suspected MRSA, Hx Shingles, Hx Tuberculosis, Hx Known/ Suspected VRE, Hx Known/Suspected VRSA, History Other Infectious Disease, Traveled Outside the [place] in Last 30 Days - Family History Known Family History: Positive: None, Unknown, Cardiac Disease, Diabetes, Other - cancer Family History: FHx of asthma - Social History Alcohol Use: Rare Hx Substance Use: No Substance Use Type: Reports: None Substance Use Comment - Amount & Last Used: one year Hx Tobacco Use: No Smoking Status (MU): Never Smoked Tobacco Have You Smoked in the Last Year: No Review of Systems Constitutional: Negative Eyes: Negative Positive: Sore Throat, Ear Ache Cardiovascular: Negative Respiratory: Negative Gastrointestinal: Negative Genitourinary: Negative Musculoskeletal: Negative Skin: Negative Neurological: Negative Psychological: Normal All Other Systems Reviewed And Are Negative: Yes Physical Exam - Summary Physical Exam Summary: Mild swelling of the submandibular area on right side. No erythema to the mastoid. Normal TMs. Full range of motion of jaw. Oropharyngeal exam normal. Triage Information Reviewed: Yes Vital Signs On Initial Exam: Initial Vitals Temp Pulse Resp BP Pulse Ox 98.0 F 60 16 119/62 97 01/21/18 22:20 01/21/18 22:20 01/21/18 22:20 01/21/18 22:20 01/21/18 22:20 Vital Signs Reviewed: Yes Appearance: Positive: Well-Appearing Skin: Positive: Warm Head/Face: Positive: Normal Head/Face Inspection Eyes: Positive: Normal ENT: Positive: Pharynx normal, TMs normal, Uvula midline. Negative: Tonsillar swelling, Tonsillar exudate, Trismus, Muffled voice, Hoarse voice Neck: Positive: Supple Respiratory/Lung Sounds: Positive: Clear to Auscultation Cardiovascular: Positive: Normal Abdomen Description: Positive: Nontender Musculoskeletal: Positive: Normal Neurological: Positive: Normal Psychiatric: Positive: Normal AVPU Assessment: Alert - Denise Coma Scale Best Eye Response: 4 - Spontaneous Best Motor Response: 6 - Obeys Commands Best Verbal Response: 5 - Oriented Coma Scale Total: 15 Diagnostics - Vital Signs Vital Signs Temp Pulse Resp BP Pulse Ox 01/21/18 22:20 98.0 F 60 16 119/62 97 - Laboratory Lab Results: Lab Results 01/21/18 01/21/18 Range/Units 23:32 23:32 WBC 9.2 (3.5-10.8) 10^3/ul RBC 4.51 (4.00-5.40) 10^6/ul Hgb 13.4 (12.0-16.0) g/dl Hct 39 (35-47) % MCV 87 (80-97) fL MCH 30 (27-31) pg MCHC 34 (31-36) g/dl RDW 13 (10.5-15) % Plt Count 206 (150-450) 10^3/ul MPV 9.1 (7.4-10.4) fL Neut % (Auto) 65.8 (38-83) % Lymph % (Auto) 26.7 (25-47) % [place] % (Auto) 5.7 (0-7) % Eos % (Auto) 1.2 (0-6) % Baso % (Auto) 0.6 (0-2) % Absolute Neuts (auto) 6.0 (1.5-7.7) 10^3/ul Absolute Lymphs (auto) 2.4 (1.0-4.8) 10^3/ul Absolute Monos (auto) 0.5 (0-0.8) 10^3/ul Absolute Eos (auto) 0.1 (0-0.6) 10^3/ul Absolute Basos (auto) 0.1 (0-0.2) 10^3/ul Absolute Nucleated RBC 0 10^3/ul Nucleated RBC % 0 Sodium 139 (135-145) mmol/L Potassium 3.6 (3.5-5.0) mmol/L Chloride 105 (101-111) mmol/L Carbon Dioxide 27 (22-32) mmol/L Anion Gap 7 (2-11) mmol/L BUN 13 (6-24) mg/dL Creatinine 0.83 (0.51-0.95) mg/dL Est GFR ( Amer) 97.7 (>60) Est GFR (Non-Af Amer) 80.7 (>60) BUN/Creatinine Ratio 15.7 (8-20) Glucose 90 (70-100) mg/dL Calcium 8.8 (8.6-10.3) mg/dL Total Bilirubin 0.30 (0.2-1.0) mg/dL AST 11 L (13-39) U/L ALT 6 L (7-52) U/L Alkaline Phosphatase 59 (34-104) U/L C-Reactive Protein 12.48 H (<8.01) mg/L Total Protein 6.8 (6.4-8.9) g/dL Albumin 4.1 (3.2-5.2) g/dL Globulin 2.7 (2-4) g/dL Albumin/Globulin Ratio 1.5 (1-3) Result Diagrams: 01/21/18 23:32 01/21/18 23:32 Lab Statement: Any lab studies that have been ordered have been reviewed, and results considered in the medical decision making process. EENT Course/Dx - Course Course Of Treatment: Patient sent by [facility] to ED for further evaluation of right submandibular pain and swelling involving right ear right side throat. Patient denies history of the toe abscess, fever, cough, sore throat, CP, SOB, N/V/D, abdominal pain, change in urine, change in BM. Medical history is none. Patient took naproxen yesterday. physical exam:Mild swelling of the submandibular area on right side. No erythema to the mastoid. Normal TMs. Full range of motion of jaw. Oropharyngeal exam normal. Vital signs within normal limits. Labs unremarkable. CT soft tissue neck positive only for lymph adenopathy - Differential Diagnoses Differential Diagnoses: Dental Abscess, Mastoiditis, Otitis Media, Periodontic Abscess, Pharyngitis, Tonsilitis - Diagnoses Provider Diagnoses: Anterior cervical lymphadenopathy Discharge - Sign-Out/Discharge Documenting (check all that apply): Patient Departure - Discharge Plan Condition: Stable Disposition: HOME Prescriptions: HYDROcodone/ACETAMIN 5-325 MG* [Qulin 5-325 TAB*] 1 tab PO TID 2 Days #6 tab MDD 3 tabs Patient Education Materials: Lymphadenopathy (ED) Referrals: Jeanine LEVINE,Maria M Peguero [Primary Care Provider] - Additional Instructions: Follow-up with primary care. Return to the ED for any new or worsening symptoms - Billing Disposition and Condition Condition: STABLE Disposition: Home
[2018-01-22 03:19] VITALS: BP 126/72
== END 2018-01-22 03:00 | disposition home or self-care (01) ==
LOC: ED 22:19
DX: R59.1 Generalized enlarged lymph nodes (principal); K02.9 Dental caries, unspecified; Z88.1 Allergy status to other antibiotic agents; Z88.5 Allergy status to narcotic agent
CPT/HCPCS: 36415; 70491; 80053; 85025; 86140; 99282; A9270-GY; Q9967

== ENCOUNTER 2018-02-11 15:15 | Emergency (ER) | payer OTHER ==
[2018-02-11 15:49] VITALS: BP 117/42
[2018-02-11] MEDS ORDERED: Dexamethasone IV* 4 MG/ML 1 ML (4 MG) IM ONE ×2 (17:06→17:07)
[2018-02-11] MEDS ORDERED: Ibuprofen TAB* 400 MG PO ONE (17:06)
--- NOTE | 2018-02-11 17:10 | UC ---
Respiratory Complaint HPI - HPI Summary HPI Summary: 32 year old female with history of asthma (no prior intubation) here with complaint of sore throat, hoarseness and cough. Reports symptoms started about 3 days ago. She reports she was running around in the storm outside. Subjective fever. Productive cough. Reports chest discomfort when coughing. No sob. - History of Current Complaint Chief Complaint: UCGeneralIllness Stated Complaint: CONGESTED,SORE THROAT Time Seen by Provider: 02/11/18 16:59 Hx Last Menstrual Period: 01/31/18 Onset/Duration: Sudden Onset Pain Intensity: 8 Character: Cough: Productive Associated Signs And Symptoms: Positive: Chills, URI, Nasal Congestion, Hoarseness. Negative: Hemoptysis, Calf Pain, Calf Swelling - Allergies/Home Medications Allergies/Adverse Reactions: Allergies Allergy/AdvReac Type Severity Reaction Status Date / Time clindamycin Allergy Hives/Diff. Verified 02/11/18 15:37 Breathing/I tching tramadol Allergy Hives/Diff. Verified 02/11/18 15:37 Breathing/I tching arugula Allergy Unknown Uncoded 02/11/18 15:37 Reaction Details bleach Allergy Hives/Diff. Uncoded 02/11/18 15:37 Breathing/I tching PMH/Surg Hx/FS Hx/Imm Hx Other History Of: Negative For: Anticoagulant Therapy - Surgical History Surgical History: Yes Surgery Procedure, Year, and Place: fracture mandible. broken left arm (CLOSED REDUCTION) - Family History Known Family History: Positive: None, Unknown, Cardiac Disease, Diabetes, Other - cancer Family History: FHx of asthma - Social History Alcohol Use: None Substance Use Type: None Substance Use Comment - Amount & Last Used: one year Smoking Status (MU): Never Smoked Tobacco Have You Smoked in the Last Year: No Household Exposure Type: Cigarettes, Pipe - Immunization History Most Recent Influenza Vaccination: NOT UTD Review of Systems All Other Systems Reviewed And Are Negative: Yes Constitutional: Positive: Negative ENT: Positive: Sore Throat Respiratory: Positive: Cough Is Patient Immunocompromised?: No Physical Exam Appearance: Well-Appearing, No Pain Distress Vital Signs: Initial Vital Signs Temp 36.6 C 02/11/18 15:39 Pulse 65 02/11/18 15:39 Resp 20 02/11/18 15:39 BP 117/42 02/11/18 15:39 Pulse Ox 98 12/01/18 15:39 Eye Exam: Normal ENT: Positive: Pharyngeal erythema, Nasal congestion. Negative: Tonsillar swelling, Tonsillar exudate, Muffled voice, Sinus tenderness Respiratory Exam: Normal Cardiovascular Exam: Normal Abdominal Exam: Normal Musculoskeletal Exam: Normal Neurological Exam: Normal Psychological Exam: Normal Diagnostic Evaluation - Laboratory O2 Sat by Pulse Oximetry: 98 Respiratory Course/Dx - Differential Dx/Diagnosis Differential Diagnosis/HQI/PQRI: Bronchitis, Laryngitis, Sinusitis Provider Diagnosis: Laryngitis Discharge - Sign-Out/Discharge Documenting (check all that apply): Patient Departure All imaging exams completed and their final reports reviewed: Yes - Discharge Plan Condition: Good Disposition: HOME Patient Education Materials: Laryngitis (ED), Cold Symptoms (ED) Referrals: Maria M Torres [Primary Care Provider] - - Billing Disposition and Condition Condition: GOOD Disposition: Home
== END 2018-02-11 17:34 | disposition home or self-care (01) ==
LOC: UCEAST 15:15
DX: J04.0 Acute laryngitis (principal); Z88.1 Allergy status to other antibiotic agents; Z88.5 Allergy status to narcotic agent
CPT/HCPCS: 96372; 99212; A9270-GY; G0463; J1100

== ENCOUNTER 2018-05-02 21:33 | Emergency (ER) | payer OTHER ==
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
[2018-05-02 21:49] VITALS: BP 123/58
--- NOTE | 2018-05-02 21:57 | ED ---
Throat Pain/Nasal Congestion - HPI Summary HPI Summary: hx. of dental pain right lower jaw. told she needed root canal , was denied by her insurance, since that time has had increasing pain - History of Current Complaint Chief Complaint: UCDentalProblem Time Seen by Provider: 05/02/18 21:37 Hx Obtained From: Patient Onset/Duration: Sudden Onset Severity: Moderate - Epiglottits Risk Factors Epiglottis Risk Factors: Negative - Allergies/Home Medications Allergies/Adverse Reactions: Allergies Allergy/AdvReac Type Severity Reaction Status Date / Time clindamycin Allergy Hives/Diff. Verified 05/02/18 21:49 Breathing/I tching tramadol Allergy Hives/Diff. Verified 05/02/18 21:49 Breathing/I tching arugula Allergy Unknown Uncoded 02/11/18 15:37 Reaction Details bleach Allergy Hives/Diff. Uncoded 02/11/18 15:37 Breathing/I tching PMH/Surg Hx/FS Hx/Imm Hx Previously Healthy: Yes Endocrine/Hematology History: Denies: Hx Anticoagulant Therapy, Hx Diabetes, Hx Thyroid Disease Cardiovascular History: Denies: Hx Hypertension, Hx Pacemaker/ICD Respiratory History: Reports: Hx Asthma Denies: Hx Chronic Obstructive Pulmonary Disease (COPD) GI History: Reports: Hx Gastroesophageal Reflux Disease Denies: Hx Ulcer History: Denies: Hx Renal Disease Musculoskeletal History: Denies: Hx Arthritis Sensory History: Denies: Hx Hearing Aid Neurological History: Denies: Hx Dementia, Hx Seizures Psychiatric History: Denies: Hx Panic Disorder, Hx Substance Abuse - Surgical History Surgery Procedure, Year, and Place: fracture mandible. broken left arm (CLOSED REDUCTION) - Immunization History Date of Tetanus Vaccine: utd Date of Influenza Vaccine: none Infectious Disease History: No Infectious Disease History: Reports: Traveled Outside the [place] in Last 30 Days - oumar Denies: Hx Clostridium Difficile, Hx Hepatitis, Hx Human Immunodeficiency Virus (HIV), Hx of Known/Suspected MRSA, Hx Shingles, Hx Tuberculosis, Hx Known/ Suspected VRE, Hx Known/Suspected VRSA, History Other Infectious Disease - Family History Known Family History: Positive: None, Unknown, Cardiac Disease, Diabetes, Other - cancer Family History: FHx of asthma - Social History Alcohol Use: None Hx Substance Use: No Substance Use Type: Reports: None Substance Use Comment - Amount & Last Used: one year Hx Tobacco Use: No Smoking Status (MU): Never Smoked Tobacco Have You Smoked in the Last Year: No Review of Systems Constitutional: Negative Eyes: Negative ENT: Negative Gastrointestinal: Negative Genitourinary: Negative All Other Systems Reviewed And Are Negative: Yes Physical Exam Triage Information Reviewed: Yes Vital Signs On Initial Exam: Initial Vitals Temp Pulse Resp BP Pulse Ox 37.4 C 68 16 123/58 100 05/02/18 21:44 05/02/18 21:44 05/02/18 21:44 05/02/18 21:44 05/02/18 21:44 Vital Signs Reviewed: Yes Appearance: Positive: Well-Appearing Skin: Positive: Warm Dental: Positive: Percussion Tenderness @ - right posterior inferior molar Neck: Positive: Supple, Tenderness @ - submandibular adenopathy Respiratory/Lung Sounds: Positive: Clear to Auscultation Cardiovascular: Positive: Normal Abdomen Description: Positive: Nontender Bowel Sounds: Positive: Present Diagnostics - Vital Signs Vital Signs Temp Pulse Resp BP Pulse Ox 05/02/18 21:44 37.4 C 68 16 123/58 100 - Laboratory Lab Statement: Any lab studies that have been ordered have been reviewed, and results considered in the medical decision making process. EENT Course/Dx - Diagnoses Provider Diagnoses: Dental abscess Discharge - Sign-Out/Discharge Documenting (check all that apply): Patient Departure All imaging exams completed and their final reports reviewed: No Studies - Discharge Plan Condition: Fair Disposition: HOME Prescriptions: Amoxicillin PO (*) [Amoxicillin 875 MG (*)] 875 mg PO BID #14 tab Patient Education Materials: Dental Abscess (ED) Referrals: Jeanine LEVINE,Maria M Peguero [Primary Care Provider] - - Billing Disposition and Condition Condition: FAIR Disposition: Home
[2018-05-02] MEDS ORDERED: Amoxicillin PO (*) 500 MG CAP PO ONE (22:01)
[2018-05-03] MEDS ORDERED: Amoxicillin PO (*) 875 MG TAB PO SCH (09:00)
== END 2018-05-02 22:10 | disposition home or self-care (01) ==
LOC: UCEAST 21:33
DX: K04.7 Periapical abscess without sinus (principal); Z88.1 Allergy status to other antibiotic agents; Z88.5 Allergy status to narcotic agent; Z91.048 Other nonmedicinal substance allergy status
CPT/HCPCS: 99212; A9270-GY; G0463

== ENCOUNTER → 2018-06-16 02:24 | Emergency (ER) | payer OTHER ==
[~2018-06-16 02:24] MED LIST: Ciproflox/Dexameth OTIC.SUSP* 7.5 ML BTL RIGHT EAR SCH; Ibuprofen TAB* 400 MG PO ONE
--- NOTE | 2018-06-16 02:42 | ED ---
Throat Pain/Nasal Congestion - HPI Summary HPI Summary: Pt is a 32 y/o female who presents to the ED c/o ear pain. 2 days ago she began having a right inner ear ache. Yesterday she noticed severe pain to the outside of her ear as well. Pt states she also was very fatigued yesterday, and that her ear is hot to the touch. The pain is rated an 8/10 in severity. As per nurse s note, she feels as if there is something on her earlobe. - History of Current Complaint Chief Complaint: EDEarPain Time Seen by Provider: 06/16/18 02:40 Hx Obtained From: Patient Onset/Duration: Gradual Onset, Lasting Days - 2, Still Present Severity: Severe - 8/10 Associated Signs And Symptoms: Positive: Negative Cough: None - Allergies/Home Medications Allergies/Adverse Reactions: Allergies Allergy/AdvReac Type Severity Reaction Status Date / Time clindamycin Allergy Hives/Diff. Verified 06/16/18 02:29 Breathing/I tching tramadol Allergy Hives/Diff. Verified 06/16/18 02:29 Breathing/I tching arugula Allergy Unknown Uncoded 06/16/18 02:29 Reaction Details bleach Allergy Hives/Diff. Uncoded 06/16/18 02:29 Breathing/I tching PMH/Surg Hx/FS Hx/Imm Hx Endocrine/Hematology History: Denies: Hx Anticoagulant Therapy, Hx Diabetes, Hx Thyroid Disease Cardiovascular History: Denies: Hx Hypertension, Hx Pacemaker/ICD Respiratory History: Reports: Hx Asthma Denies: Hx Chronic Obstructive Pulmonary Disease (COPD) GI History: Reports: Hx Gastroesophageal Reflux Disease Denies: Hx Ulcer History: Denies: Hx Renal Disease Musculoskeletal History: Denies: Hx Arthritis Neurological History: Denies: Hx Dementia, Hx Seizures Psychiatric History: Denies: Hx Panic Disorder, Hx Substance Abuse - Surgical History Surgery Procedure, Year, and Place: fracture mandible. broken left arm (CLOSED REDUCTION) - Immunization History Date of Tetanus Vaccine: utd Date of Influenza Vaccine: none Infectious Disease History: No Infectious Disease History: Denies: Hx Clostridium Difficile, Hx Hepatitis, Hx Human Immunodeficiency Virus (HIV), Hx of Known/Suspected MRSA, Hx Shingles, Hx Tuberculosis, Hx Known/ Suspected VRE, Hx Known/Suspected VRSA, History Other Infectious Disease, Traveled Outside the [place] in Last 30 Days - Family History Known Family History: Positive: Cardiac Disease, Diabetes, Respiratory Disease - asthma, Other - cancer - Social History Alcohol Use: None Hx Substance Use: No Substance Use Type: Reports: None Substance Use Comment - Amount & Last Used: one year Hx Tobacco Use: No Smoking Status (MU): Never Smoked Tobacco Have You Smoked in the Last Year: No Review of Systems Positive: Fatigue Positive: Ear Ache - right inner and outer Positive: Other - right ear hot All Other Systems Reviewed And Are Negative: Yes Physical Exam - Summary Physical Exam Summary: VITAL SIGNS: Reviewed. GENERAL: Patient is a well-developed and nourished FEMALE who is lying comfortable in the stretcher. Patient is not in any acute respiratory distress. HEAD AND FACE: No signs of trauma. No ecchymosis, hematomas or skull depressions. No sinus tenderness. EYES: PERRLA, EOMI x 2, No injected conjunctiva, no nystagmus. EARS: Hearing grossly intact. Tympanic membranes are within normal limits. Right tragal tenderness. Pain with movement of right auricle. Tenderness and mild edema of right external ear canal. MOUTH: Oropharynx within normal limits. NECK: Supple, trachea is midline, no adenopathy, no JVD, no carotid bruit, no c- spine tenderness, neck with full ROM. CHEST: Symmetric, no tenderness at palpation LUNGS: Clear to auscultation bilaterally. No wheezing or crackles. CVS: Regular rate and rhythm, S1 and S2 present, no murmurs or gallops appreciated. ABDOMEN: Soft, non-tender. No signs of distention. No rebound no guarding, and no masses palpated. Bowel sounds are normal. EXTREMITIES: FROM in all major joints, no edema, no cyanosis or clubbing. NEURO: Alert and oriented x 3. No acute neurological deficits. Speech is normal and follows commands. SKIN: Dry and warm Triage Information Reviewed: Yes Vital Signs On Initial Exam: Initial Vitals Temp Pulse Resp BP Pulse Ox 98.4 F 72 16 120/62 99 06/16/18 02:26 06/16/18 02:26 06/16/18 02:26 06/16/18 02:06/16/18 02:26 Vital Signs Reviewed: Yes Diagnostics - Vital Signs Vital Signs Temp Pulse Resp BP Pulse Ox 06/16/18 02: 98.4 F 72 16 120/62 99 - Laboratory Lab Statement: Any lab studies that have been ordered have been reviewed, and results considered in the medical decision making process. EENT Course/Dx - Course Course Of Treatment: Nurses notes reviewed. Pt is a 32 y/o female who presents to the ED c/o ear pain for 2 days. A physical exam revealed right tragal tenderness, pain with movement of right auricle, and tenderness and mild edema of right external ear canal. Pt will be discharged with a final dx of otitis externa. She is instructed to use 4 Ciprodex drops BID for 7 days. She is agreeable with this plan. - Diagnoses Provider Diagnoses: Otitis externa Discharge - Sign-Out/Discharge Documenting (check all that apply): Patient Departure - Discharge Patient Received Moderate/Deep Sedation with Procedure: No - Discharge Plan Condition: Stable Disposition: HOME Patient Education Materials: Ciprofloxacin/Dexamethasone (Into the ear), Earache (ED) Referrals: Jeanine LEVINE,Maria M Peguero [Primary Care Provider] - (2-3 days) Additional Instructions: Use 4 Ciprodex drops in your right ear twice a day for 7 days. Keep your ear dry. PLEASE RETURN TO THE ED IMMEDIATELY FOR WORSENING OR CONCERNING SYMPTOMS. - Attestation Statements Document Initiated by Scribe: Yes Documenting Scribe: Mini Nam Provider For Whom Scribe is Documenting (Include Credential): Kyle Carnes MD Scribe Attestation: Mini King, scribed for Kyle Carnes MD on 06/16/18 at 0252. Status of Scribe Document: Ready
[2018-06-16 03:36] VITALS: BP 143/57
== END | disposition home or self-care (01) ==
LOC: ED 02:24
DX: H60.91 Unspecified otitis externa, right ear (principal)
CPT/HCPCS: 99281; A9270-GY

== ENCOUNTER 2018-08-05 13:02 | Emergency (ER) | payer OTHER ==
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
[2018-08-05 13:14] VITALS: BP 142/39
--- NOTE | 2018-08-05 13:45 | UC ---
FLU HPI - HPI Summary HPI Summary: This patient is a 32-year-old female who presents to the urgent care with a chief complaint of having runny nose, dry cough, sinus congestion, and she also reports that she has sore throat and she has been exposed to someone with strep throat. She denies any fever, denies any chills or difficulty swallowing. She denies any headache or nausea or vomiting. She has no other complaints. - History of Current Complaint Chief Complaint: UCRespiratory Stated Complaint: COUGH SORE THROAT SINUS ISSUE Time Seen by Provider: 08/05/18 13:32 Hx Obtained From: Patient Hx Last Menstrual Period: 07/15/18 Onset/Duration: Gradual Onset Severity Currently: Mild Severity Initially: Mild Pain Intensity: 9 - Allergy/Home Medications Allergies/Adverse Reactions: Allergies Allergy/AdvReac Type Severity Reaction Status Date / Time clindamycin Allergy Hives/Diff. Verified 08/05/18 13:15 Breathing/I tching spider venom Allergy Anaphylatic Verified 08/05/18 13:15 Shock tramadol Allergy Hives/Diff. Verified 08/05/18 13:15 Breathing/I tching arugula Allergy Unknown Uncoded 08/05/18 13:15 Reaction Details bleach Allergy Hives/Diff. Uncoded 08/05/18 13:15 Breathing/I tching Home Medications: Home Medications Dextromethorphan Polistirex [Robitussin ER] 1 dose PO ONCE PRN 08/05/18 [ History Confirmed 08/05/18] EPINEPHrine [Epipen] 1 dose IM ONCE PRN 08/05/18 [History Confirmed 08/05/18] Mv-Min/Vit C/Glut/Lysine/Hb124 [Airborne Effervescent Tablet] 1 tab PO DAILY PRN 08/05/18 [History Confirmed 08/05/18] PMH/Surg Hx/FS Hx/Imm Hx Previously Healthy: Yes Respiratory History: Asthma Other History Of: Negative For: Anticoagulant Therapy - Surgical History Surgical History: Yes Surgery Procedure, Year, and Place: fracture mandible. broken left arm (CLOSED REDUCTION) - Family History Known Family History: Positive: Cardiac Disease, Diabetes, Respiratory Disease - asthma, Other - cancer - Social History Alcohol Use: None Substance Use Type: None Substance Use Comment - Amount & Last Used: one year Smoking Status (MU): Never Smoked Tobacco Have You Smoked in the Last Year: No Household Exposure Type: Cigarettes, Pipe - Immunization History Most Recent Influenza Vaccination: NOT UTD Review of Systems All Other Systems Reviewed And Are Negative: Yes Constitutional: Positive: Negative Skin: Positive: Negative Eyes: Positive: Negative ENT: Positive: Sore Throat Respiratory: Positive: Cough Cardiovascular: Positive: Negative Gastrointestinal: Positive: Negative Genitourinary: Positive: Negative Motor: Positive: Negative Neurovascular: Positive: Negative Musculoskeletal: Positive: Negative Neurological: Positive: Negative Psychological: Positive: Negative Is Patient Immunocompromised?: No Physical Exam - Summary Physical Exam Summary: VITAL SIGNS: Reviewed. GENERAL: Patient is a well developed and nourished female who is lying comfortable in the stretcher. Patient is not in any acute respiratory distress. HEAD AND FACE: No signs of trauma. No ecchymosis, hematomas or skull depressions. No sinus tenderness. EYES: PERRLA, EOMI x 2, No injected conjunctiva, no nystagmus. EARS: Hearing grossly intact. Ear canals and tympanic membranes are within normal limits. MOUTH: Oropharynx within normal limits. No erythema or exudate NECK: Supple, trachea is midline, no adenopathy, no JVD, no carotid bruit, no c- spine tenderness, neck with full ROM. CHEST: Symmetric, no tenderness at palpation LUNGS: Clear to auscultation bilaterally. No wheezing or crackles. CVS: Regular rate and rhythm, S1 and S2 present, no murmurs or gallops appreciated. ABDOMEN: Soft, non-tender. No signs of distention. No rebound no guarding, and no masses palpated. Bowel sounds are normal. EXTREMITIES: FROM in all major joints, no edema, no cyanosis or clubbing. NEURO: Alert and oriented x 3. No acute neurological deficits. Speech is normal and follows commands. SKIN: Dry and warm Triage Information Reviewed: Yes Appearance: Well-Appearing, No Pain Distress, Well-Nourished Vital Signs: Initial Vital Signs Temp 97.5 F 08/05/18 13:09 Pulse 72 08/05/18 13:09 Resp 18 08/05/18 13:09 BP 142/39 08/05/18 13:09 Pulse Ox 100 08/05/18 13:09 Flu Course/Dx - Course Course Of Treatment: Rapid strep is negative. I believe that the patients symptoms are secondary to an upper respiratory tract infection which is likely viral in etiology. Therefore she was given Tessalon tablets and discharged home with follow-up with the primary care physician. Patient is hemodynamically stable alert and oriented 3 - Differential Dx/Diagnosis Differential Diagnosis/HQI/PQRI: Bronchitis, Upper Respiratory Infection Provider Diagnosis: URI (upper respiratory infection) Discharge - Sign-Out/Discharge Documenting (check all that apply): Patient Departure All imaging exams completed and their final reports reviewed: No Studies - Discharge Plan Condition: Stable Disposition: HOME Prescriptions: Benzonatate CAP* [Tessalon 100 MG CAP*] 100 mg PO TID PRN #12 cap PRN Reason: Cough Patient Education Materials: Upper Respiratory Infection (ED) Referrals: Jeanine LEVINE,Maria M Peguero [Primary Care Provider] - Additional Instructions: Take medications as instructed Increase your fluid intake Return to the UC if symptoms worsen - Billing Disposition and Condition Condition: STABLE Disposition: Home
== END 2018-08-05 14:14 | disposition home or self-care (01) ==
LOC: UCEAST 13:02
DX: J06.9 Acute upper respiratory infection, unspecified (principal); J45.909 Unspecified asthma, uncomplicated; Z91.09 Other allergy status, other than to drugs and biological substances; Z88.1 Allergy status to other antibiotic agents; Z88.5 Allergy status to narcotic agent
CPT/HCPCS: 87651; 99212; G0463

== ENCOUNTER → 2018-08-10 19:56 | Emergency (ER) | payer OTHER ==
[~2018-08-10 19:56] MED LIST changes: +Azithromycin TAB* 250 MG PO ONE; -Ciproflox/Dexameth OTIC.SUSP* 7.5 ML BTL RIGHT EAR SCH; -Ibuprofen TAB* 400 MG PO ONE
--- NOTE | 2018-08-10 21:10 | ED ---
Respiratory - HPI Summary HPI Summary: 32 yo female [place] [facility] with sinus pain/pressure/congestion, sore throat , and intermittently productive cough for the last 2 weeks. She tells me that she was seen at the urgent care a few days ago where a strep test was negative and given tessalon and dx'd with a viral URI. Since that time her symptoms have not improved. She has also taken robitussin OTC with no relief. She denies fever , chills, SOB, chest pain. - History of Current Complaint Chief Complaint: EDUpperRespComplaint Stated Complaint: SORE THROAT/COUGH/VOMITING PER PT Time Seen by Provider: 08/10/18 21:03 Hx Obtained From: Patient Onset/Duration: Gradual Onset Initial Severity: Severe Current Severity: Severe Pain Intensity: 9 - Allergy/Home Medications Allergies/Adverse Reactions: Allergies Allergy/AdvReac Type Severity Reaction Status Date / Time clindamycin Allergy Hives/Diff. Verified 08/10/18 20:03 Breathing/I tching spider venom Allergy Anaphylatic Verified 08/10/18 20:03 Shock tramadol Allergy Hives/Diff. Verified 08/10/18 20:03 Breathing/I tching arugula Allergy Unknown Uncoded 08/10/18 20:03 Reaction Details bleach Allergy Hives/Diff. Uncoded 08/10/18 20:03 Breathing/I tching PMH/Surg Hx/FS Hx/Imm Hx Endocrine/Hematology History: Denies: Hx Anticoagulant Therapy, Hx Diabetes, Hx Thyroid Disease Cardiovascular History: Denies: Hx Hypertension, Hx Pacemaker/ICD Respiratory History: Reports: Hx Asthma Denies: Hx Chronic Obstructive Pulmonary Disease (COPD) GI History: Reports: Hx Gastroesophageal Reflux Disease Denies: Hx Ulcer History: Denies: Hx Renal Disease Musculoskeletal History: Denies: Hx Arthritis Neurological History: Denies: Hx Dementia, Hx Seizures Psychiatric History: Denies: Hx Panic Disorder, Hx Substance Abuse - Surgical History Surgery Procedure, Year, and Place: fracture mandible. broken left arm (CLOSED REDUCTION) - Immunization History Date of Tetanus Vaccine: utd Date of Influenza Vaccine: none Infectious Disease History: No Infectious Disease History: Denies: Hx Clostridium Difficile, Hx Hepatitis, Hx Human Immunodeficiency Virus (HIV), Hx of Known/Suspected MRSA, Hx Shingles, Hx Tuberculosis, Hx Known/ Suspected VRE, Hx Known/Suspected VRSA, History Other Infectious Disease, Traveled Outside the [place] in Last 30 Days - Family History Known Family History: Positive: Cardiac Disease, Diabetes, Respiratory Disease - asthma, Other - cancer - Social History Alcohol Use: None Hx Substance Use: No Substance Use Type: Reports: None Substance Use Comment - Amount & Last Used: one year Hx Tobacco Use: No Smoking Status (MU): Never Smoked Tobacco Have You Smoked in the Last Year: No Review of Systems Constitutional: Negative Eyes: Negative Positive: Sore Throat, Nasal Discharge Cardiovascular: Negative Positive: Cough Gastrointestinal: Negative Neurological: Negative Psychological: Normal All Other Systems Reviewed And Are Negative: Yes Physical Exam - Summary Physical Exam Summary: GENERAL: NAD. WDWN. No pain distress. SKIN: No rashes, sores, lesions, or open wounds. HEENT: Head: AT/NC Eyes: EOM intact. Conjunctiva clear without inflammation or discharge. Ears: Hearing grossly normal. TMs intact, no bulging, erythema, or edema. Nose: Nasal mucosa pink and moist. NTTP maxillary and frontal sinus. Throat: Posterior oropharynx without exudates, erythema, or tonsillar enlargement. Uvula midline. NECK: Supple. Nontender. No lymphadenopathy. CHEST: CTAB. No r/r/w. No accessory muscle use. Breathing comfortably and in no distress. CV: RRR. Without m/r/g. Pulses intact. Cap refill <2seconds NEURO: Alert. PSYCH: Age appropriate behavior. Triage Information Reviewed: Yes Vital Signs On Initial Exam: Initial Vitals Temp Pulse Resp BP Pulse Ox 97.8 F 84 20 155/84 99 08/10/18 19:58 08/10/18 19:58 08/10/18 19:58 08/10/18 19:58 08/10/18 19:58 Vital Signs Reviewed: Yes Diagnostics - Vital Signs Vital Signs Temp Pulse Resp BP Pulse Ox 08/10/18 19:58 97.8 F 84 20 155/84 99 - Laboratory Lab Statement: Any lab studies that have been ordered have been reviewed, and results considered in the medical decision making process. Disposition - Course Course Of Treatment: Suspect bronchitis. Given pt's prolonged symptoms with failure of OTC and supportive medications will rx for anbx at this time. - Diagnoses Provider Diagnoses: Bronchitis Discharge - Sign-Out/Discharge Documenting (check all that apply): Patient Departure Patient Received Moderate/Deep Sedation with Procedure: No - Discharge Plan Condition: Stable Disposition: HOME Prescriptions: Azithromycin TAB* [Zithromax TAB (Z-ROMAN) 250 mg #6 tabs] 2 tab PO .TODAY, THEN 1 DAILY #1 roman Codeine Phosphate/Guaifenesin [Guaifen-Codeine 100-10 mg/5 ml] 5 ml PO BEDTIME PRN #35 ml MDD 5mL PRN Reason: Cough Patient Education Materials: Acute Bronchitis (ED) Referrals: Jeanine LEVINE,Maria M Peguero [Primary Care Provider] - Additional Instructions: If you develop a fever, shortness of breath, chest pain, new or worsening symptoms - please call your PCP or go to the ED immediately. Your blood pressure was high at todays visit. Please see your primary provider within 4 weeks for recheck and re-evaluation. - Billing Disposition and Condition Condition: STABLE Disposition: Home
[2018-08-10 21:21] VITALS: BP 131/67
== END | disposition home or self-care (01) ==
LOC: ED 19:56
DX: J40 Bronchitis, not specified as acute or chronic (principal); J02.9 Acute pharyngitis, unspecified; R05 Cough; R11.10 Vomiting, unspecified
CPT/HCPCS: 99282; A9270-GY

== ENCOUNTER 2018-08-25 09:15 | Emergency (ER) | payer OTHER ==
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
[2018-08-25 09:26] VITALS: BP 122/49
--- NOTE | 2018-08-25 10:21 | UC ---
Dental HPI - HPI Summary HPI Summary: 32-year-old female who started having a right upper toothache of the second bicuspid tooth. It is partially broken with a filling present. She has been able to get into a dentist yet. She started having the pain over the past couple of days. - History of Current Complaint Chief Complaint: UCDentalProblem Stated Complaint: DENTAL PAIN Time Seen by Provider: 08/25/18 10:21 Hx Obtained From: Patient Hx Last Menstrual Period: 08/19/18 ?: No Onset/Duration: Gradual Onset Severity: Moderate Pain Intensity: 10 Aggravating Factor(s): Chewing Alleviating Factor(s): Nothing - Allergies/Home Medications Allergies/Adverse Reactions: Allergies Allergy/AdvReac Type Severity Reaction Status Date / Time clindamycin Allergy Hives/Diff. Verified 08/25/18 09:25 Breathing/I tching spider venom Allergy Anaphylatic Verified 08/25/18 09:25 Shock tramadol Allergy Hives/Diff. Verified 08/25/18 09:25 Breathing/I tching arugula Allergy Unknown Uncoded 08/25/18 09:25 Reaction Details bleach Allergy Hives/Diff. Uncoded 08/25/18 09:25 Breathing/I tching PMH/Surg Hx/FS Hx/Imm Hx Previously Healthy: Yes Respiratory History: Asthma Other History Of: Negative For: Anticoagulant Therapy - Surgical History Surgical History: Yes Surgery Procedure, Year, and Place: fracture mandible. broken left arm (CLOSED REDUCTION) - Family History Known Family History: Positive: Cardiac Disease, Diabetes, Respiratory Disease - asthma, Other - cancer - Social History Alcohol Use: None Substance Use Type: None Substance Use Comment - Amount & Last Used: one year Smoking Status (MU): Never Smoked Tobacco Have You Smoked in the Last Year: No Household Exposure Type: Cigarettes, Pipe - Immunization History Most Recent Influenza Vaccination: NOT UTD Review of Systems All Other Systems Reviewed And Are Negative: Yes ENT: Positive: Dental Pain - The right upper second bicuspid is partially broken with a filling still present, with pain of the gumline. Physical Exam Triage Information Reviewed: Yes Appearance: Well-Appearing, No Pain Distress, Well-Nourished Vital Signs: Initial Vital Signs Temp 97.8 F 08/25/18 09:22 Pulse 67 08/25/18 09:22 Resp 17 08/25/18 09:22 BP 122/49 08/25/18 09:22 Pulse Ox 100 08/25/18 09:22 Vital Signs Reviewed: Yes Eyes: Positive: Conjunctiva Clear ENT: Positive: Hearing grossly normal, Pharynx normal, TMs normal, Uvula midline Dental: Positive: Percussion Tenderness @ - The right upper second bicuspid., Dental Fracture @ - Patient has harsh the broken tooth there with a filling still present. The gumline itself is mildly swollen there is one small bleb which may be the beginning of an abscess but it looks more like it may be a mucocele. Neck: Positive: Supple, Nontender, No Lymphadenopathy Respiratory: Positive: Lungs clear, Normal breath sounds, No respiratory distress, No accessory muscle use Cardiovascular: Positive: RRR, No Murmur, Pulses Normal, Brisk Capillary Refill Dental Complaint Course/Dx - Course Course Of Treatment: Patient is comfortable here. She is to follow-up with her dentist over the next week before the antibiotic is finished. - Differential Dx/Diagnosis Provider Diagnosis: Toothache Discharge - Sign-Out/Discharge Documenting (check all that apply): Patient Departure All imaging exams completed and their final reports reviewed: No Studies - Discharge Plan Condition: Fair Disposition: HOME Prescriptions: Amoxicillin PO (*) [Amoxicillin 875 MG (*)] 875 mg PO BID 10 Days #20 tab Patient Education Materials: Toothache (ED) Referrals: Maria M Solorzano PA [Primary Care Provider] - Additional Instructions: May take Tylenol every 4 hours and naproxen every 12 hours for pain. Follow-up with your dentist as we discussed. - Billing Disposition and Condition Condition: FAIR Disposition: Home
== END 2018-08-25 10:30 | disposition home or self-care (01) ==
LOC: UCEAST 09:15
DX: K08.89 Other specified disorders of teeth and supporting structures (principal)
CPT/HCPCS: 99212; G0463

== ENCOUNTER 2018-10-20 17:19 | Emergency (ER) | payer OTHER ==
[2018-10-20 17:34] VITALS: BP 120/62
--- NOTE | 2018-10-20 18:05 | UC ---
Ear Complaint HPI - HPI Summary HPI Summary: 33-year-old female comes in with a chief complaint of left pinna swelling and pain. Started several days ago. Pain is getting worse. Patient reports she's had a cellulitis in this area in the past. She has not had earrings in recently. It's more tender to palpation. No fevers or chills. Does feel some radiation going down the left side of her neck. No complaint of difficulty swallowing. - History of Current Complaint Chief Complaint: UCEar Stated Complaint: EXTERNAL EAR PAIN Time Seen by Provider: 10/20/18 17:44 Hx Last Menstrual Period: 10/16/2018 Pain Intensity: 9 - Allergies/Home Medications Allergies/Adverse Reactions: Allergies Allergy/AdvReac Type Severity Reaction Status Date / Time clindamycin Allergy Hives/Diff. Verified 10/20/18 17:34 Breathing/I tching spider venom Allergy Anaphylatic Verified 10/20/18 17:34 Shock tramadol Allergy Hives/Diff. Verified 10/20/18 17:34 Breathing/I tching arugula Allergy Unknown Uncoded 10/20/18 17:34 Reaction Details bleach Allergy Hives/Diff. Uncoded 10/20/18 17:34 Breathing/I tching PMH/Surg Hx/FS Hx/Imm Hx Previously Healthy: Yes - CELLULITIS LEFT PINNA Other History Of: Negative For: Anticoagulant Therapy - Surgical History Surgical History: Yes Surgery Procedure, Year, and Place: fracture mandible. broken left arm (CLOSED REDUCTION) - Family History Known Family History: Positive: Cardiac Disease, Diabetes, Respiratory Disease - asthma, Other - cancer - Social History Alcohol Use: Occasionally Substance Use Type: None Substance Use Comment - Amount & Last Used: one year Smoking Status (MU): Never Smoked Tobacco Have You Smoked in the Last Year: No Household Exposure Type: Cigarettes, Pipe - Immunization History Most Recent Influenza Vaccination: NOT UTD Review of Systems All Other Systems Reviewed And Are Negative: Yes Constitutional: Positive: Negative Skin: Positive: Other - SEE HPI Eyes: Positive: Negative ENT: Positive: Ear Ache. Negative: Sore Throat, Nasal Discharge, Sinus Congestion, Sinus Pain/Tenderness Respiratory: Positive: Negative Cardiovascular: Positive: Negative Gastrointestinal: Positive: Negative Motor: Positive: Negative Neurovascular: Positive: Negative Musculoskeletal: Positive: Negative Neurological: Positive: Negative Psychological: Positive: Negative Is Patient Immunocompromised?: No Physical Exam Triage Information Reviewed: Yes Appearance: Well-Appearing, No Pain Distress, Well-Nourished Vital Signs: Initial Vital Signs Temp 99.4 F 10/20/18 17:28 Pulse 90 10/20/18 17:28 Resp 16 10/20/18 17:28 BP 120/62 10/20/18 17:28 Pulse Ox 97 10/20/18 17:28 Vital Signs Reviewed: Yes Eye Exam: Normal Eyes: Positive: Conjunctiva Clear ENT: Positive: Pharynx normal, TMs normal, Other - On the anterior inferior aspect of the left pinna there is some swelling and erythema. At this time was not large enough area of fluctuance for I&D. The ear canal itself has some ear wax and it and the TM itself is normal. There is no erythema passed approximately 1 cm area on the pinna. Neck: Positive: Supple Ear Complaint Course/Dx - Course Course Of Treatment: Appears to be the beginning of an abscess in the left pinna. At this time it was not large enough or fluid collection for drainage. We'll treat with Keflex 500 mg by mouth 4 times a day get reevaluated sooner if worse or any questions or concerns. - Differential Dx/Diagnosis Provider Diagnosis: Pinna infection, acute Discharge - Sign-Out/Discharge Documenting (check all that apply): Patient Departure All imaging exams completed and their final reports reviewed: No Studies - Discharge Plan Condition: Stable Disposition: HOME Prescriptions: Cephalexin CAP* [Keflex CAP*] 500 mg PO QID #40 cap Patient Education Materials: Abscess (ED) Referrals: Maria M Solorzano PA [Primary Care Provider] - Additional Instructions: FOLLOW UP WITH YOUR DOCTOR IF NOT COMPLETELY IMPROVED. GET RECHECKED SOONER IF YOUR CONDITION WORSENS OR ANY QUESTIONS OR CONCERNS. - Billing Disposition and Condition Condition: STABLE Disposition: Home
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
== END 2018-10-20 18:25 | disposition home or self-care (01) ==
LOC: UCEAST 17:19
DX: H60.392 Other infective otitis externa, left ear (principal)
CPT/HCPCS: 99212; G0463

== ENCOUNTER 2018-12-12 02:27 | Emergency (ER) | payer OTHER ==
[2018-12-12] MEDS ORDERED: Cephalexin CAP* 500 MG PO ONE (02:39)
--- NOTE | 2018-12-12 02:42 | ED ---
Skin Complaint - HPI Summary HPI Summary: Pt is a 33 y/o F presenting to the ED with a chief complaint of a possible infection in her umbilicus. She reports skin irritation 2/2 metal in her belt for which she used hydrocortisone but the pain and redness worsened. She reports burning pain, erythema, and white, smelly discharge to the area. She is allergic to many things, including metals like nickel or copper. She denies fever or abdominal pain aside from near her umbilicus. - History of Current Complaint Chief Complaint: EDGeneral Time Seen by Provider: 12/12/18 02:33 Stated Complaint: PAIN IN BELLY BUTTON PER PT Hx Obtained From: Patient Hx Last Menstrual Period: 10/16/2018 Onset/Duration: Started Hours Ago, Still Present Skin Exposure Onset/Duration: Hours Ago Timing: Constant, Lasting Hours Onset Severity: Moderate Current Severity: Severe Pain Intensity: 9 Pain Scale Used: 0-10 Numeric Skin Location: Other: - umbilicus Character: Pain, Redness Aggravating Symptom(s): Nothing Alleviating Symptom(s): Nothing Associated Signs & Symptoms: Rash - Allergy/Home Medications Allergies/Adverse Reactions: Allergies Allergy/AdvReac Type Severity Reaction Status Date / Time clindamycin Allergy Hives/Diff. Verified 10/20/18 17:34 Breathing/I tching spider venom Allergy Anaphylatic Verified 10/20/18 17:34 Shock tramadol Allergy Hives/Diff. Verified 10/20/18 17:34 Breathing/I tching arugula Allergy Unknown Uncoded 10/20/18 17:34 Reaction Details bleach Allergy Hives/Diff. Uncoded 10/20/18 17:34 Breathing/I tching PMH/Surg Hx/FS Hx/Imm Hx Previously Healthy: Yes Endocrine/Hematology History: Denies: Hx Anticoagulant Therapy, Hx Diabetes, Hx Thyroid Disease Cardiovascular History: Denies: Hx Hypertension, Hx Pacemaker/ICD Respiratory History: Reports: Hx Asthma Denies: Hx Chronic Obstructive Pulmonary Disease (COPD) GI History: Reports: Hx Gastroesophageal Reflux Disease Denies: Hx Ulcer History: Denies: Hx Renal Disease Musculoskeletal History: Denies: Hx Arthritis Neurological History: Denies: Hx Dementia, Hx Seizures Psychiatric History: Denies: Hx Panic Disorder, Hx Substance Abuse - Surgical History Surgery Procedure, Year, and Place: fracture mandible. broken left arm (CLOSED REDUCTION) - Immunization History Date of Tetanus Vaccine: utd Date of Influenza Vaccine: none Infectious Disease History: No Infectious Disease History: Denies: Hx Clostridium Difficile, Hx Hepatitis, Hx Human Immunodeficiency Virus (HIV), Hx of Known/Suspected MRSA, Hx Shingles, Hx Tuberculosis, Hx Known/ Suspected VRE, Hx Known/Suspected VRSA, History Other Infectious Disease, Traveled Outside the [place] in Last 30 Days - Family History Known Family History: Positive: Cardiac Disease, Diabetes, Respiratory Disease - asthma, Other - cancer - Social History Alcohol Use: Occasionally Hx Substance Use: No Substance Use Type: Reports: None Substance Use Comment - Amount & Last Used: one year Hx Tobacco Use: No Smoking Status (MU): Never Smoked Tobacco Have You Smoked in the Last Year: No Review of Systems Negative: Fever Positive: Rash, Other - discharge from belly button, erythema, pain All Other Systems Reviewed And Are Negative: Yes Physical Exam - Summary Physical Exam Summary: General: Well appearing, no distress HEENT: PERRL Cardiovascular: Skin is well perfused Pulmonary: No respiratory distress, no tachypnea Abdomen: Non-distended. NT, Obese, Erythema of the umbilicus. Skin: Erythema of umbilicus otherwise no rashes MSK: No edema Psych: Normal affect Neuro: A&Ox3 Triage Information Reviewed: Yes Vital Signs On Initial Exam: Initial Vitals Temp Pulse Resp BP Pulse Ox 98 F 78 16 131/58 99 12/12/18 02:28 12/12/18 02:28 12/12/18 02:28 12/12/18 02:28 12/12/18 02:28 Vital Signs Reviewed: Yes Diagnostics - Vital Signs Vital Signs Temp Pulse Resp BP Pulse Ox 12/12/18 02:28 98 F 78 16 131/58 99 - Laboratory Lab Statement: Any lab studies that have been ordered have been reviewed, and results considered in the medical decision making process. Course/Dx - Course Course Of Treatment: 33 y/o F p/w umbilical erythema and tenderness. - exam w erythema of umbilicus, will treat as cellulitis given worsening symptoms. Will also give nystatin cream to cover fungal cause as could also be fungal. No systemic symptoms. - Diagnoses Provider Diagnoses: Cellulitis, umbilical Discharge ED - Sign-Out/Discharge Documenting (check all that apply): Patient Departure Patient Received Moderate/Deep Sedation with Procedure: No - Discharge Plan Condition: Stable Disposition: HOME Prescriptions: Cephalexin CAP* [Keflex CAP*] 500 mg PO QID 7 Days #28 cap Nystatin TOP POWDER* 1 applic TOPICAL TID #1 btl Patient Education Materials: Antifungals (On the skin), Cellulitis (ED) Referrals: Maria M Solorzano PA [Primary Care Provider] - Additional Instructions: You were seen in the emergency department for belly button pain. This is likely from irritation from being damp/wet. Please use nystatin powder on your belly button. Keep the area dry and clean. There is concern for overlying cellulitis (a skin infection), so you were given an antibiotic. Please follow up with your primary care doctor in next 2-3 days and return to emergency department for worsening pain, increased redness, fevers or concerning symptoms. It was a pleasure taking care of you today. - Billing Disposition and Condition Condition: STABLE Disposition: Home - Attestation Statements Document Initiated by Natachaibe: Yes Documenting Scribe: Comfort Francisco Provider For Whom Lali is Documenting (Include Credential): Graham Padilla MD. Scribe Attestation: IComfort, scribed for Graham Padilla MD. on 12/12/18 at 0249. Scribe Documentation Reviewed: Yes Provider Attestation: The documentation as recorded by the scribeComfort accurately reflects the service I personally performed and the decisions made by Graham pearson MD. Status of Scribe Document: Viewed
--- OUTSIDE RECORDS SUMMARY | 2018-12-12 02:59 | XMS REPORT | Continuity of Care Document ---
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 Unavailable Problems Active Problems Provider Date Idiopathic urticaria Luz Lubin NP Onset: 12/01/2018 Allergic urticaria Benny Pickett MD Onset: 11/03/2018 Uncomplicated moderate persistent asthma Benny Pickett MD Onset: Allergic rhinitis Benny Pickett MD Onset: 11/03/2018 Allergic rhinitis due to pollen Benny Pickett MD Onset: 11/03/2018 Social History Type Date Description Comments Sex Unknown Tobacco Use Start: Unknown Patient has never smoked Tobacco Use Start: Unknown No Second Hand Smoke Exposure Smoking Status Reviewed: 11/03/18 No Second Hand Smoke Exposure Allergies, Adverse Reactions, Alerts Active Allergies Reaction Severity Comments Date Clindamycin Phosphate 11/03/2018 Tramadol 11/03/2018 Medications Active Medications SIG Qnty Indications Ordering Provider Date Advair Diskus inhale 1 puff by 60units Benny Staley 11/06/2018 inhalation route 2 MD Piyush 250-50mcg/Dose times per day in the Aerosol morning and evening approximately 12 hours apart Flonase Allergy 2 puffs each nostril 9.900ml J30.1 Benny Staley 2018 Relief every day MD Piyush 50mcg/Act Suspension Claritin one tablet by mouth 30tabs J30.1 Benny Staley 11/03/2018 10mg every morning MD Piyush Tablets Zyrtec Allergy one tablet by mouth 30tabs J30.1 Benny Staley 11/03/2018 every evening MD Piyush 10mg Tablets Ventolin HFA inhale 2 puffs by 16gm J30.1 Benny Wagner. 11/03/2018 inhalation route MD Piyush 108(90Base) every 4 hours as mcg/Act Aerosol needed Zantac 150 Maximum 1 by mouth twice a Unknown Strength day 150mg Tablets Xulane Unknown 150-35mcg/24HR Patches Weekly Ventolin HFA inhale 2 puffs by Unknown inhalation route 108(90Base) every 4 hours as mcg/Act Aerosol needed History Medications Symbicort 2 puff twice a 6gm J30.1 Benny Staley 11/03/2018 - 160-4.5mcg/Act day MD Piyush 11/06/2018 Aerosol Immunizations Description No Information Available Vital Signs Date Vital Result Comment 12/01/2018 9:43am BP Systolic 149 mmHg BP Diastolic 108 mmHg Height 65 inches 5'5" Weight 196.00 lb BMI (Body Mass Index) 32.6 kg/m2 Heart Rate 72 /min O2 % BldC Oximetry 97 % 11/03/2018 3:15pm BP Systolic 122 mmHg BP Diastolic 80 mmHg Height 65 inches 5'5" Weight 196.00 lb BMI (Body Mass Index) 32.6 kg/m2 Heart Rate 64 /min Respiratory Rate 16 /min O2 % BldC Oximetry 97 % Results Test Date Facility Test Result H/L Range Note Laboratory test 11/03/2018 [facility] <pending> finding Order Procedures Date Code Description Status 11/03/2018 71422 Allergy Tests Percutaneous W/ Allergenic Extracts Completed 11/03/2018 05546 Demonstration/Eval,Of Patient Utilization Of Completed Aerosol,Nebulizer 11/03/2018 02325 Bronchodilation Responsiveness Spirometry Pre/Post Completed Bronchodil Adm Medical Devices Description No Information Available Encounters Type Date Location Provider Dx Diagnosis Office Visit 12/01/2018 9:30a Madeline Lubin NP J30.1 Allergic rhinitis due to pollen J30.89 Other allergic rhinitis J45.40 Moderate persistent asthma, uncomplicated L50.1 Idiopathic urticaria Office Visit 11/03/2018 3:00p Onesimo Saleem30.1 Allergic rhinitis MD due to pollen J30.89 Other allergic rhinitis J45.40 Moderate persistent asthma, uncomplicated L50.0 Allergic urticaria Assessments Date Code Description Provider 12/01/2018 J30.1 Allergic rhinitis due to pollen Luz Lubin, MARYBETH 12/01/2018 J30.89 Other allergic rhinitis Luz Lubin NP 12/01/2018 J45.40 Moderate persistent asthma, uncomplicated Luz Lubin, MARYBETH 12/01/2018 L50.1 Idiopathic urticaria Luz Lubin NP 11/03/2018 J30.1 Allergic rhinitis due to pollen Benny Pickett MD 11/03/2018 J30.89 Other allergic rhinitis Benny Pickett MD 11/03/2018 J45.40 Moderate persistent asthma, uncomplicated Benny Pickett MD 11/03/2018 L50.0 Allergic urticaria Benny Pickett MD Plan of Treatment Future Appointment(s):01/05/2019 10:30 am - Luz Lubin NP at [id number] - Luz Lubin NPJ30.1 Allergic rhinitis due to pollenComments:Patient present for discussion of Skin testing to environmental allergies that are severe and are all year long.Skin testing discussion and she is highly allergic to all 70 allergen tested. I did discuss avoidance, however given the level and number of her positive it would be almost impossible to avoid everything, however she should do all she can to decreased her allergen load.She certainly need toemploy the strictest bedroom techniques. Clean bedding and mattress covers weekly. Dust weekly and minimize clutter. She should employ air conditioners and air purifiers. Medications were reviewed and no new RX were indicated at this visit. She is an excellent candidate for immunotherapy and she is interested.The patient is going to read the information given to her on allergies and I recommend she follow-up in 1 month to see how she is doing and we can discuss immunotherapy.J30.89 Other allergic bwlmpkmcF25.40 Moderate persistent asthma, uncomplicatedComments:Patient presents with a history of moderate persistent asthma, I did not review her previous pulmonary function test which revealed FEV1 83, FEV1 FVC 108, FEF 2575 81, post test 8999 and 78% respectively with minimal reversibility.Patient will continue with;Advair Diskus 250-50 mcg/Dose inhale 1 puff by inhalation route 2 times per day in the morning and evening approximately 12 hours apartFlonase Allergy Relief 50 mcg/Act 2 puffs each nostril every dayClaritin 10 mg one tablet by mouth every morningZyrtec Allergy 10 mg one tablet by mouth every eveningVentolin HFA 108 (90 Base) mcg/Act inhale 2 puffs by inhalation route every 4 hours as neededZantac 150 Maximum Strength 150 mg 1 by mouth twice a dayVentolin HFA 108 (90 Base) mcg/Act inhale 2 puffs by inhalation route every 4 hours as needed.Follow up in one month.L50.1 Idiopathic urticariaComments:This patient has been experiencing episodes of severe urticaria since childhood. She reports multiple visits to the [facility] care we are going to ask for a release of medical records and send for copies to evaluate. She is highly allergic to bleach and Tide laundry detergents which she strictly avoids.RAST testing to foods were reviewed all of the positives were highlighted and discussed which included;Apple IgE 0.81Garlic IgE 0.79 Oat IgE 0.50Onion IgE 0.86 IgE 60.4I asked her to conduct an elimination diet to see if there is any correlation with urticaria.Once we obtain the records to see what the patient was prescribed I am presuming steroids and/or Benadryl she may be a good candidate forXolair.Follow-up in 1 month for further discussion. Functional Status Description No Information Available Mental Status Description No Information Available Referrals Description No Information Available
--- OUTSIDE RECORDS SUMMARY | 2018-12-12 02:59 | XMS REPORT | Continuity of Care Document ---
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 Problems Description No Information Available Social History Type Date Description Comments Sex Unknown Allergies, Adverse Reactions, Alerts Active Allergies Reaction Severity Comments Date Clindamycin Phosphate 11/03/2018 Tramadol 11/03/2018 Medications Active Medications SIG Qnty Indications Ordering Provider Date Zantac 150 Maximum 1 by mouth twice a Unknown Strength day 150mg Tablets Xulane Unknown 150-35mcg/24HR Patches Weekly Ventolin HFA inhale 2 puffs by Unknown inhalation route 108(90Base) mcg/Act every 4 hours as Aerosol needed Immunizations Description No Information Available Vital Signs Date Vital Result Comment 11/03/2018 3:15pm BP Systolic 122 mmHg BP Diastolic 80 mmHg Height 65 inches 5'5" Weight 196.00 lb BMI (Body Mass Index) 32.6 kg/m2 Heart Rate 64 /min Respiratory Rate 16 /min O2 % BldC Oximetry 97 % Results Description No Information Available Procedures Description No Information Available Medical Devices Description No Information Available Encounters Description No Information Available Assessments Description No Information Available Plan of Treatment No Information Available Functional Status Description No Information Available Mental Status Description No Information Available Referrals Description No Information Available
--- OUTSIDE RECORDS SUMMARY | 2018-12-12 02:59 | XMS REPORT | Continuity of Care Document ---
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 -[employer] - Allergy & Immunology Problems Active Problems Provider Date Mild intermittent asthma Maria M Solorzano PA Onset: 05/12/2016 Allergic rhinitis Maria M Solorzano PA Onset: 05/12/2016 Gastroesophageal reflux disease Maria M Solorzano PA Onset: 05/12/2016 Bipolar disorder Maria M Solorzano PA Onset: 05/12/2016 Social History Type Date Description Comments Sex Unknown Allergies, Adverse Reactions, Alerts Active Allergies Reaction Severity Comments Date Clindamycin hives, rash, 05/12/2016 Tramadol hives, rash, seizure 05/12/2016 Bleach 02/09/2018 Spider Bites 02/09/2018 Inactive Allergies NKDA 07/05/2003 Medications Active Medications SIG Qnty Indications Ordering Date Provider Epinephrine Use as Directed as 2Unspecifi Maria M Solorzano, 11/30/2018 0.3mg/0.3ML Needed For ed PA Solution Auto-Inject Anaphylaxis Zyrtec Allergy 1 by mouth every Unknown 11/27/2018 10mg day for allergies Tablets Hydrocortisone apply to affected 30gm L23.0 Silcoff, 08/01/2018 2.5% areas twice a day Eleonora Bailey Cream as needed Ciprodex instill 4 drops Unknown 06/16/2018 0.3-0.1% into affected ear Suspension 2 times per day for 7 days Fluticasone 2 sprays in each 48gm Silcoff, 09/29/2017 Propionate nostril daily as Eleonora Bailey 50mcg/Act needed for nasal Suspension allergies Debrox 5 drops right ear 15ml H61.21 Silcoff, 04/06/2017 6.5% Solution daily as needed Eleonora Bailey Ventolin HFA Inhale 2 Puffs 18units J45.20 Silcoff, 05/12/2016 Every 4-6 Hours as Eleonora Bailey 108(90Base) mcg/Act Needed For Asthma Aerosol J98.01 Xulane Apply 1 Patch Once 3units Leo Eden, 150-35mcg/24HR Patches A Week For 3 Weeks M.DJoaquin Weekly Then 1 Week 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 Take 1 Tablet By 60tabs Leo Eden, Strength Mouth Twice A Day M.DJoaquin 150mg Tablets as Needed History Medications Triamcinolone Acetonide use as directed 30gm L23.0 Karey, 07/26/2018 - 0.1% twice a day to Eleonora Bailey 08/01/2018 Cream affected areas as needed Methylprednisolone use as directed 1units H92.01 Karey, 06/22/2018 - 4mg TBPK on package Eleonora Bailey 07/25/2018 Immunizations Description No Information Available Vital Signs Date Vital Result Comment 11/28/2018 11:23am BP Systolic 120 mmHg BP Diastolic 80 mmHg Body Temperature 97.6 F Weight 234.00 lb 07/26/2018 10:47am BP Systolic 102 mmHg BP Diastolic 60 mmHg Body Temperature 97.8 F Height 65 inches 5'5" Weight 201.50 lb BMI (Body Mass Index) 33.5 kg/m2 Results Test Date Facility Test Result H/L Range Note Laboratory test 08/05/2018 [facility] Rapid Strep Negative Negative 1 finding [phone] 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 Procedures Description No Information Available Medical Devices Description No Information Available Encounters Type Date Location Provider Dx Diagnosis Office Visit 11/28/2018 Main Office Maria M Solorzano PA H60.02 Abscess of left 11:05a external ear J30.9 Allergic rhinitis, unspecified Office Visit 07/26/2018 10:40a Main Office Maria M Solorzano PA 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 J30.9 Allergic rhinitis, unspecified Z68.33 Body mass index (BMI) 33.0-33.9, adult Office Visit 06/22/2018 1:15p Main Office Maria M Solorzano PA H92.01 Otalgia, right ear H66.91 Otitis media, unspecified, right ear Assessments Date Code Description Provider 11/28/2018 H60.02 Abscess of left external ear Maria M Solorzano PA 11/28/2018 J30.9 Allergic rhinitis, unspecified Maria M Solorzano PA 07/26/2018 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 Recheck if sx not improving.J30.9 Allergic rhinitis, unspecifiedComments:Continue to use OTC antihistamines and flonase as needed. Will refer for allergy testing per pt request.Referral:[facility], Allergy & VeyzhdcwimG08.33 Body mass index (BMI) 33.0-33.9, adult Functional Status Description No Information Available Mental Status Description No Information Available Referrals Refer to Reason for Referral Status Appt Date [facility] allergy testing, consult Closed 11/2018 [address] [place] [address] [phone]
--- OUTSIDE RECORDS SUMMARY | 2018-12-12 02:59 | XMS REPORT | Continuity of Care Document ---
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 11/03/2018 - 160-4.5mcg/Act day MD Piyush 11/06/2018 [...] Order Procedures Date Code Description Status 11/03/2018 10804 Allergy Tests Percutaneous W/ Allergenic Extracts Completed 11/03/2018 75365 Demonstration/Eval,Of Patient Utilization Of Completed Aerosol,Nebulizer 11/03/2018 11919 Bronchodilation Responsiveness Spirometry Pre/Post Completed Bronchodil Adm Medical Devices Description No Information Available Encounters Type Date Location Provider Dx Diagnosis Office Visit 11/03/2018 Madeline Pickett J30.1 Allergic rhinitis 3:00p due to pollen J30.89 Other allergic rhinitis J45.40 Moderate persistent asthma, uncomplicated L50.0 Allergic urticaria Assessments Date Code Description Provider 11/03/2018 J30.1 Allergic rhinitis due to pollen Benny Pickett MD 11/03/2018 J30.89 Other allergic rhinitis Benny Pickett MD 11/03/2018 J45.40 Moderate persistent asthma, uncomplicated Benny Pickett MD 11/03/2018 L50.0 Allergic urticaria Benny Pickett MD Plan of Treatment No Information Available Functional Status Description No Information Available Mental Status Description No Information Available Referrals Description No Information Available
--- OUTSIDE RECORDS SUMMARY | 2018-12-12 02:59 | XMS REPORT | Continuity of Care Document ---
:1985 External Reference #:[id number] Author Name Benny Pickett MD Address [address] 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 Problems Active Problems Provider Date Allergic [...] Medications SIG Qnty Indications Ordering Provider Date Flonase Allergy 2 puffs each 9.900ml J30.1 Benny Staley 11/03/2018 Relief nostril every day MD Piyush 50mcg/Act Suspension Claritin one tablet by 30tabs J30.1 Benny Staley 11/03/2018 10mg mouth every MD Piyush Tablets morning Zyrtec Allergy one tablet by 30tabs J30.1 Benny Staley 11/03/2018 10mg mouth every MD Piyush Tablets evening Symbicort 2 puff twice a 6gm J30.1 Benny Staley 11/03/2018 day MD Piyush 160-4.5mcg/Act Aerosol Ventolin HFA inhale 2 puffs by 16gm J30.1 Benny Staley 11/03/2018 inhalation route MD Piyush 108(90Base) mcg/Act every 4 hours as Aerosol needed Zantac 150 Maximum 1 by mouth twice Unknown Strength a day 150mg Tablets Xulane Unknown 150-35mcg/24HR Patches [...] Laboratory test 11/03/2018 [facility] Order <pending> finding Order 11/03/2018 [facility] Inhaler <pending> Training-Patient Demonstrates Competency PFT Supplies <pending> PFT With Bronchodilator <pending> Skin Test Seasonal and Environmental <pending> Procedures Date Code Description Status 11/03/2018 58279 Allergy Tests Percutaneous W/ Allergenic Extracts Completed 11/03/2018 68299 Demonstration/Eval,Of Patient Utilization Of Completed Aerosol,Nebulizer 11/03/2018 13095 Bronchodilation Responsiveness Spirometry Pre/Post Completed Bronchodil Adm Medical Devices Description No Information Available Encounters Description No Information Available Assessments Date Code Description Provider 11/03/2018 J30.1 Allergic rhinitis due to pollen Benny Pickett MD 11/03/2018 J30.89 Other allergic rhinitis Benny Pickett MD 11/03/2018 J45.40 Moderate persistent asthma, uncomplicated Benny Pickett MD 11/03/2018 L50.0 Allergic urticaria Benny Pickett MD Plan of Treatment 11/03/2018 - Benny Pickett MDJ30.1 Allergic rhinitis due to pollenNew Medication:Flonase Allergy Relief 50 mcg/Act - 2 puffs each nostril every dayClaritin 10 mg - one tablet by mouth every morningZyrtec Allergy 10 mg - one tablet by mouth every eveningSymbicort 160-4.5 mcg/Act - 2 puff twice a dayVentolin HFA 108(90 Base) mcg/Act - inhale 2 puffs by inhalation route every 4 hours as tftuquY44.89 Other allergic wxpagcspO38.40 Moderate persistent asthma , lbzatzfrsmswqO03.0 Allergic urticaria Functional Status Description No Information Available Mental Status Description No Information Available Referrals Description No Information Available
[2018-12-12 03:00] VITALS: BP 146/88
== END 2018-12-12 02:50 | disposition home or self-care (01) ==
LOC: ED 02:27
DX: L03.316 Cellulitis of umbilicus (principal); Z88.1 Allergy status to other antibiotic agents; Z88.5 Allergy status to narcotic agent; Z91.018 Allergy to other foods; Z91.048 Other nonmedicinal substance allergy status
CPT/HCPCS: 99282; A9270-GY

== ENCOUNTER 2018-12-31 03:36 | Emergency (ER) | payer OTHER ==
--- NOTE | 2018-12-31 04:23 | ED ---
Throat Pain/Nasal Congestion - HPI Summary HPI Summary: This patient is a 33 year old F presenting to [facility] with a chief complaint of throat pain since 2-3 days ago. Pt report she originally started with mild throat pain, and it has worsened. She reports that on 12/30/18 she laid down to take a nap, and when she woke up she could barely breathe, and felt like she was suffocating. Her throat has a sharp pain and was swollen. She also reports she had driven in a car with an exhaust leak, stating that she first had a JEAN which turned into a raging migraine. Pt has PMHx of asthma, and acid reflux disease. Patient reports fever, and chills. - History of Current Complaint Chief Complaint: EDThroatPain Time Seen by Provider: 12/31/18 04:13 Hx Obtained From: Patient Onset/Duration: Gradual Onset, Lasting Days, Still Present Severity: Severe Associated Signs And Symptoms: Positive: Negative Cough: None - Allergies/Home Medications Allergies/Adverse Reactions: Allergies Allergy/AdvReac Type Severity Reaction Status Date / Time clindamycin Allergy Hives/Diff. Verified 12/31/18 04:21 Breathing/I tching spider venom Allergy Anaphylatic Verified 12/31/18 04:21 Shock tramadol Allergy Hives/Diff. Verified 12/31/18 04:21 Breathing/I tching arugula Allergy Unknown Uncoded 12/31/18 04:21 Reaction Details bleach Allergy Hives/Diff. Uncoded 12/31/18 04:21 Breathing/I tching PMH/Surg Hx/FS Hx/Imm Hx Endocrine/Hematology History: Denies: Hx Anticoagulant Therapy, Hx Diabetes, Hx Thyroid Disease Cardiovascular History: Denies: Hx Hypertension, Hx Pacemaker/ICD Respiratory History: Reports: Hx Asthma Denies: Hx Chronic Obstructive Pulmonary Disease (COPD) GI History: Reports: Hx Gastroesophageal Reflux Disease Denies: Hx Ulcer History: Denies: Hx Renal Disease Musculoskeletal History: Denies: Hx Arthritis Neurological History: Denies: Hx Dementia, Hx Seizures Psychiatric History: Denies: Hx Panic Disorder, Hx Substance Abuse - Surgical History Surgery Procedure, Year, and Place: fracture mandible. broken left arm (CLOSED REDUCTION) - Immunization History Date of Tetanus Vaccine: utd Date of Influenza Vaccine: none Infectious Disease History: No Infectious Disease History: Denies: Hx Clostridium Difficile, Hx Hepatitis, Hx Human Immunodeficiency Virus (HIV), Hx of Known/Suspected MRSA, Hx Shingles, Hx Tuberculosis, Hx Known/ Suspected VRE, Hx Known/Suspected VRSA, History Other Infectious Disease, Traveled Outside the [place] in Last 30 Days - Family History Known Family History: Positive: Cardiac Disease, Diabetes, Respiratory Disease - asthma, Other - cancer - Social History Alcohol Use: Occasionally Hx Substance Use: No Substance Use Type: Reports: None Substance Use Comment - Amount & Last Used: one year Hx Tobacco Use: No Smoking Status (MU): Never Smoked Tobacco Have You Smoked in the Last Year: No Review of Systems Positive: Fever, Chills Positive: Sore Throat Positive: Headache All Other Systems Reviewed And Are Negative: Yes Physical Exam - Summary Physical Exam Summary: Appearance: Well-appearing, Well-nourished, lying in bed comfortably; Able to speak in very long sentences between breaths Skin: Warm, dry, no obvious rash Eyes: sclera anicteric, no conjunctival pallor ENT: mucous membranes moist, pharynx appears normal Neck: Supple, nontender Respiratory: Clear to auscultation, no signs of respiratory distress; No wheezing even with forced expiration Cardiovascular: Normal S1, S2. No murmurs. Normal distal pulses in tibial and radial bilaterally. Abdomen: Soft, nontender, normal active bowel sounds present Musculoskeletal: Normal, Strength/ROM Intact Neurological: A&Ox3, awake and alert, mentation is normal, speech is fluent and appropriate Psychiatric: affect is normal, does not appear anxious or depressed Triage Information Reviewed: Yes Vital Signs On Initial Exam: Initial Vitals Temp Pulse Resp BP Pulse Ox 98.5 F 87 20 133/67 97 12/31/18 03:37 12/31/18 03:37 12/31/18 03:37 12/31/18 03:37 12/31/18 03:37 Vital Signs Reviewed: Yes Procedures - Sedation Patient Received Moderate/Deep Sedation with Procedure: No Diagnostics - Vital Signs Vital Signs Temp Pulse Resp BP Pulse Ox 12/31/18 03:37 98.5 F 87 20 133/67 97 - Laboratory Lab Statement: Any lab studies that have been ordered have been reviewed, and results considered in the medical decision making process. EENT Course/Dx - Course Course Of Treatment: This patient is a 33 year old F presenting to [facility] with a chief complaint of throat pain since 2-3 days ago. Pt report she originally started with mild throat pain, and it has worsened. She reports that on she laid down to take a nap, and when she woke up she could barely breathe, and felt like she was suffocating. Her throat has a sharp pain and was swollen. She also reports she had driven in a car with an exhaust leak, stating that she first had a JEAN which turned into a raging migraine. Pt has PMHx of asthma, and acid reflux disease. Patient reports fever, and chills. Patient will be discharged. The patient is agreeable with this plan. - Diagnoses Provider Diagnoses: Laryngitis Discharge ED - Sign-Out/Discharge Documenting (check all that apply): Patient Departure - Discharge - Discharge Plan Condition: Good Disposition: HOME Patient Education Materials: Laryngitis (ED) Referrals: Maria M Solorzano PA [Primary Care Provider] - 1 Week (if not improving) - Billing Disposition and Condition Condition: GOOD Disposition: Home - Attestation Statements Document Initiated by Roberte: Yes Documenting Scribe: Ana Maria Link Provider For Whom Lali is Documenting (Include Credential): Hammad Tatum MD Scribe Attestation: Ana Maria King scribed for Hammad Tatum MD on 01/01/19 at 0329. Scribe Documentation Reviewed: Yes Provider Attestation: The documentation as recorded by the Ana Maria leonardo accurately reflects the service I personally performed and the decisions made by me, Hammad Tatum MD Status of Scribe Document: Viewed
[2018-12-31 04:33] VITALS: BP 121/59
== END 2018-12-31 04:28 | disposition home or self-care (01) ==
LOC: ED 03:36
DX: J04.0 Acute laryngitis (principal); R07.0 Pain in throat; Z88.1 Allergy status to other antibiotic agents; Z88.5 Allergy status to narcotic agent; Z91.018 Allergy to other foods; Z91.048 Other nonmedicinal substance allergy status
CPT/HCPCS: 99282

== ENCOUNTER 2019-01-04 10:51 | Emergency (ER) | payer OTHER ==
[2019-01-04 11:04] VITALS: BP 141/90
--- NOTE | 2019-01-04 11:11 | UC ---
Throat Pain/Nasal Gucci HPI - HPI Summary HPI Summary: Patient is a 33-year-old female who presents to the urgent care with chief complaint of having a runny nose, sore throat, productive cough. She reports fevers and body aches, fatigue and the feeling well. She denies any difficulty swallowing or any other complaint. She denies any chest pain or shortness of breath. - History of Current Complaint Chief Complaint: UCGeneralIllness Stated Complaint: THROAT COMPLAINT Time Seen by Provider: 01/04/19 10:53 Hx Obtained From: Patient Hx Last Menstrual Period: 12/26/18 ?: No Onset/Duration: Gradual Onset Pain Intensity: 10 - Allergies/Home Medications Allergies/Adverse Reactions: Allergies Allergy/AdvReac Type Severity Reaction Status Date / Time clindamycin Allergy Hives/Diff. Verified 01/04/19 11:04 Breathing/I tching spider venom Allergy Anaphylatic Verified 01/04/19 11:04 Shock tramadol Allergy Hives/Diff. Verified 01/04/19 11:04 Breathing/I tching arugula Allergy Unknown Uncoded 01/04/19 11:04 Reaction Details bleach Allergy Hives/Diff. Uncoded 01/04/19 11:04 Breathing/I tching PMH/Surg Hx/FS Hx/Imm Hx Previously Healthy: Yes Other History Of: Negative For: Anticoagulant Therapy - Surgical History Surgical History: Yes Surgery Procedure, Year, and Place: fracture mandible. broken left arm (CLOSED REDUCTION) - Family History Known Family History: Positive: Cardiac Disease, Diabetes, Respiratory Disease - asthma, Other - cancer - Social History Alcohol Use: Rare Substance Use Type: None Substance Use Comment - Amount & Last Used: one year Smoking Status (MU): Never Smoked Tobacco Have You Smoked in the Last Year: No Household Exposure Type: Cigarettes, Pipe - Immunization History Most Recent Influenza Vaccination: NOT UTD Review of Systems All Other Systems Reviewed And Are Negative: Yes Constitutional: Positive: Fever, Chills, Fatigue Skin: Positive: Negative Eyes: Positive: Negative ENT: Positive: Sore Throat Respiratory: Positive: Cough Cardiovascular: Positive: Negative Gastrointestinal: Positive: Negative Genitourinary: Positive: Negative Motor: Positive: Negative Neurovascular: Positive: Negative Musculoskeletal: Positive: Negative Neurological: Positive: Negative Psychological: Positive: Negative Is Patient Immunocompromised?: No Physical Exam - Summary Physical Exam Summary: Vital signs: Reviewed Gen.: Patient is a well developed and nourished female in no acute distress. Patient is sitting comfortably on the stretcher. Head: Normacephalic and atraumatic Eyes: PERRLA, EOMI x2. Ears: Right ear canal and TM WNL Left ear canal and TM WNL Nose Nose with dry mucosa and clear discharge. No sinus tenderness and mouth: positive pharyngeal erythema with out exudate. Neck: Supple, No-bilateral submandibular and anterior cervical lymphadenopathy. No JVD Lungs: CTA B/L CVS: S1 & S2 present. No murmurs appreciated. ABDOMEN: Soft NT w/ positive BS. EXT: FROM x 4 NEURO: A+O X 3. Triage Information Reviewed: Yes Appearance: Well-Appearing Vital Signs: Initial Vital Signs Temp 99.6 F 01/04/19 10:59 Pulse 83 01/04/19 10:59 Resp 18 01/04/19 10:59 BP 141/90 01/04/19 10:59 Pulse Ox 98 01/04/19 10:59 Vital Signs Reviewed: Yes Throat Pain/Nasal Course/Dx - Course Course Of Treatment: Rapid strep: Negative Influenza A and B is negative. Chest x-ray is negative for an acute pathology. Therefore, I believe that the patient has a viral upper respiratory tract infection. Patient was advised to use Tylenol or Ibuprofen for fever or pain. - Differential Dx/Diagnosis Provider Diagnosis: URI (upper respiratory infection) Discharge ED - Sign-Out/Discharge Documenting (check all that apply): Patient Departure All imaging exams completed and their final reports reviewed: Yes - Discharge Plan Condition: Stable Disposition: HOME Patient Education Materials: Pharyngitis (ED), Upper Respiratory Infection (DC) Referrals: Maria M Solorzano PA [Primary Care Provider] - Additional Instructions: Follow-up with primary care physician in next 2-3 days. - Billing Disposition and Condition Condition: STABLE Disposition: Home
[2019-01-04 11:25] LABS: Influenza A Molecular NEGATIVE (Negative); Influenza B Molecular NEGATIVE (Negative)
== END 2019-01-04 12:17 | disposition home or self-care (01) ==
LOC: UCEAST 10:51
DX: J06.9 Acute upper respiratory infection, unspecified (principal); Z91.09 Other allergy status, other than to drugs and biological substances; Z88.8 Allergy status to other drugs, medicaments and biological substances; Z91.038 Other insect allergy status; Z88.5 Allergy status to narcotic agent
CPT/HCPCS: 71046; 87651; 99212; G0463